=== PATIENT | male | born 1960 | race Caucasian/White ===

== ENCOUNTER 2016-07-11 10:30 | Emergency (ER) | payer MEDICARE, MEDICAID ==
[2016-07-11] MEDS ORDERED: Albuterol/Ipratropium 3.0-0.5 MG/3 ML Neb Soln NEB ONE (12:32)
[2016-07-11] MEDS ORDERED: Albuterol/Ipratropium 3.0-0.5 MG/3 ML Neb Soln ONE (12:32)
[2016-07-11 12:44] VITALS: BP 111/83
--- NOTE | 2016-07-11 13:05 | EDM.PDOC ---
ED HISTORY OF PRESENT ILLNESS - General Stated Complaint: SHORT OF BREATH, ABD PAIN, COUGH SYMPTOMS Time Seen by Provider: 07/11/16 10:55 Source of Information: Reports: Patient, Family (mom) History Limitations: Reports: No limitations - History of Present Illness INITIAL COMMENTS - FREE TEXT/NARRATIVE: Patient presents with dyspnea. He has had some coughing. He uses an oxygen concentrator at home for nights at 2 liters. He brings the concentrator with him when he visits his mother and used it last night but his mother noticed it wasn't plugged in this morning and thinks may have something to do with his dyspnea and low sats today. He has known COPD and was hospitalized here in [place] for a week; discharged 5 days ago. He lives in [place] but comes to stay with his mother in [place] frequently. He has been with her since the recent hospitalization and until today didn't realize he hasn't been taking his Clozapine for his schizophrenia. They don't know where it got lost. His mom wonders if he may not have had it while inpatient either. - Related Data Allergies/ADRs: Allergies Allergy/AdvReac Type Severity Reaction Status Date / Time No Known Drug Allergies Allergy Other Verified 07/11/16 12:47 Home Meds: Home Meds Benztropine [Cogentin] 1 mg PO BEDTIME 10/20/13 [History] Citalopram [Citalopram HBr] 20 mg PO BEDTIME 10/20/13 [History] cloZAPine 600 mg PO BEDTIME 10/20/13 [History] ClonazePAM [KlonoPIN] 0.5 mg PO 0800 10/27/15 [History] ClonazePAM [KlonoPIN] 1.5 mg PO BEDTIME 10/27/15 [History] Albuterol Sulfate [Proair Hfa] 2 puff INH Q4H PRN 10/30/15 [History] ClonazePAM [KlonoPIN] 0.5 mg PO 1200 12/28/15 [History] Fluticasone/Salmeterol [Advair Hfa 230-21 Mcg Inhaler] 2 puff INH BID 12/28/15 [ History] Aspirin [Halfprin] 81 mg PO BRK 06/27/16 [History] Carvedilol 6.25 mg PO BID@0800,2000 06/27/16 [History] Digoxin 125 mcg PO DAILY 06/27/16 [History] Lisinopril 10 mg PO DAILY 06/27/16 [History] Tiotropium [Spiriva Handihaler] 18 mcg INH DAILY 07/02/16 [History] Past Medical History HEENT History: Reports: Impaired vision Cardiovascular History: Reports: Hypertension Respiratory History: Reports: Bronchitis, recurrent, COPD, Pneumonia, recurrent , Other (see below) Other Respiratory History: emphysema, mass on LLL of lung found on PET scan on . Also had cyst removed from right lung and biopsied at this time, found to be benign. Psychiatric History: Reports: Anxiety, Bipolar, Other (see below) Other Psychiatric History: schizoaffective disorder vs bipolar/high-anxiety disorder, currently treated for these conditions - Infectious Disease History Infectious Disease History: Reports: Other (see below) Other Infectious Disease History: Was taking infectious disease medication, one being rifampin, for the entire year of 2014 as prescribed by his infectious disease doctor in [place] to eliminate "spots" on his lungs over a period of time. - Past Surgical History Other HEENT Surgeries/Procedures: wears glasses Respiratory Surgical History: Reports: Lung Biopsies Social & Family History - Family History HEENT: Reports: None Cardiac: Reports: None, Aneurysm Respiratory: Reports: None GI: Reports: None : Reports: None OBGYN: Reports: None Musculoskeletal: Reports: None Neurological: Reports: None Psychiatric: Reports: None Endocrine/Metabolic: Reports: Hypothyroidism Hematologic: Reports: None Immunologic: Reports: None Dermatologic: Reports: None Oncologic: Reports: None - Tobacco Use Smoking Status *Q: Current Every Day Smoker Years of Tobacco use: 35 Packs/Tins Daily: 1.5 Used Tobacco, but Quit: No Month Tobacco Last Used: October Second Hand Smoke Exposure: No - Caffeine Use Caffeine Use: Reports: Coffee Caffeine Use Comment: Patient states that he drinks two pots of coffee every day at home. - Alcohol Use Days Per Week of Alcohol Use: 0 - Recreational Drug Use Recreational Drug Use: No Drug Use in Last 12 Months: No Recreational Drug Type: Reports: Marijuana/Hashish Recreational Drug Last Use: 1990 - Living Situation & Occupation Living situation: Reports: single, alone Occupation: employed (head of business development) ED ROS GENERAL - Review of Systems Review Of Systems: See Below Constitutional: Denies: fever (not at home but was seen here), diaphoresis HEENT: Denies: Throat pain, Throat swelling Respiratory: Reports: shortness of breath, cough Cardiovascular: Denies: Chest pain, Syncope GI/Abdominal: Denies: Abdominal pain, Diarrhea, Vomiting : Reports: no symptoms Musculoskeletal: Reports: no symptoms Skin: Denies: cyanosis, jaundice, mottled, pallor, diaphoresis Neurological: Denies: dizziness, headache, seizure, syncope, trouble speaking, difficulty walking, weakness Psychiatric: Reports: Agitation (a little more than usual likely due to being off the clozapine for a few days), Anxiety ED EXAM, GENERAL - Physical Exam Exam: See Below Exam Limited By: No limitations General Appearance: alert, WD/WN, no apparent distress Eye Exam: bilateral eye: EOMI, normal inspection, PERRL Ears: normal external exam, hearing grossly normal Nose: normal inspection Throat/Mouth: Normal inspection, Normal lips, Normal voice, No airway compromise Head: atraumatic, normocephalic Neck: normal inspection, full range of motion Respiratory/Chest: no accessory muscle use, crackles (minimal to slight but cleared some with several deep breaths), wheezing (mildly in bases). No: rhonchi, stridor Cardiovascular: normal peripheral pulses, regular rate, rhythm, no murmur GI/Abdominal: normal bowel sounds, soft, non tender, no organomegaly Back Exam: No: CVA tenderness (L), CVA tenderness (R) Extremities: normal inspection, normal range of motion, non-tender, no pedal edema Neurological: alert, oriented, no motor/sensory deficits Psychiatric: anxious Skin Exam: Warm, Dry, Intact, Normal color, No rash Course - Orders/Labs/Meds Orders: Active Orders 24 hr Category Date Time Status Chest 2V [CR] Stat Exams 07/11/16 12:28 Ordered BMP [BASIC METABOLIC PANEL,BMP] [CHEM] Stat Lab 07/11/16 12:28 Ordered CBC WITH AUTO DIFF [HEME] Stat Lab 07/11/16 12:28 Ordered - Re-Assessments/Exams Free Text/Narrative Re-Assessment/Exam: 07/11/16 13:38 WBC 23.5, CXR looks unchanged from two weeks ago and no evidence of infiltrates. Report shows lungs are clear and stable 13 mm right upper lobe nodule. Discussed with Dr. Person who knows this patient well and just discharged him from [facility] 5 days ago after he was able to be off oxygen. She thinks the leukocytosis is due to the steroid burst she discharged him on. She recommends we try Dexamethasone 8mg now and if his sats remain 88% or higher on RA he is okay to go home and follow up with his PCP in [place] in the next day or two. 07/11/16 14:17 Removed oxygen several minutes prior to administration of Dexamethasone; 11 minutes later patient remained stable at 90% sats on RA with walking. RR 22. Discharged in stable condition. Departure - Departure Time of Disposition: 14:16 Disposition: Home, Self-Care 01 Condition: good Clinical Impression: COPD (chronic obstructive pulmonary disease) Qualifiers: COPD type: unspecified COPD Qualified Code(s): J44.9 - Chronic obstructive pulmonary disease, unspecified Dyspnea Qualifiers: Dyspnea type: shortness of breath Qualified Code(s): R06.02 - Shortness of breath Additional Instructions: 1. Take your medications as directed. 2. Use the oxygen at night and as needed during the day. 3. Get back to see your PCP tomorrow to recheck the lungs and get back on your Clozapine. - My Orders Last 24 Hours: My Active Orders 07/11/16 12:28 Chest 2V [CR] Stat BMP [BASIC METABOLIC PANEL,BMP] [CHEM] Stat CBC WITH AUTO DIFF [HEME] Stat - Assessment/Plan Last 24 Hours: My Active Orders 07/11/16 12:28 Chest 2V [CR] Stat BMP [BASIC METABOLIC PANEL,BMP] [CHEM] Stat CBC WITH AUTO DIFF [HEME] Stat
[2016-07-11 13:07] LABS: CHLORIDE,CL 101 mmol/L (98-115); SODIUM,NA 138 mmol/L (136-145)
[2016-07-11] MEDS ORDERED: Dexamethasone 10 MG/ML SDV IVPUSH ONE (13:36)
== END 2016-07-11 14:30 | disposition home or self-care (01) ==
LOC: KA.ED 10:30
DX: J44.9 Chronic obstructive pulmonary disease, unspecified (principal); I10 Essential (primary) hypertension; F17.210 Nicotine dependence, cigarettes, uncomplicated; Z79.899 Other long term (current) drug therapy
CPT/HCPCS: 36415; 71020; 80048; 85025; 94640; 96374; 99285; J1100; 99284

== ENCOUNTER 2016-07-12 11:49 | Emergency (ER) | payer MEDICARE, MEDICAID ==
[2016-07-12 11:54] VITALS: BP 111/60
[2016-07-12] MEDS ORDERED: Albuterol/Ipratropium 3.0-0.5 MG/3 ML Neb Soln ONE (12:08)
[2016-07-12] MEDS ORDERED: Albuterol 0.083% 2.5 MG/3 ML Neb Soln ONE (12:08)
--- NOTE | 2016-07-12 13:01 | EDM.PDOC ---
ED HISTORY OF PRESENT ILLNESS - General Chief Complaint: Respiratory Problem Time Seen by Provider: 07/12/16 12:31 Source of Information: Reports: Patient History Limitations: Reports: No limitations - History of Present Illness INITIAL COMMENTS - FREE TEXT/NARRATIVE: Patient presents with report of shortness of breath. He says he walks 10 yards and gets tired and winded. He was in ER here yesterday and had a CXR and albuterol nebs. He was stable with sats at 90% on RA with walking at discharge. Six days ago he was inpatient here for COPD with acute exacerbation and pneumonia for a week. He also has schizophrenia and has been out of his Clozapine for 6 days but they called his pharmacy in [place] and it will be delivered to him at his mother's house tomorrow. He is trying to get back to [place] to follow up with his animal husbandry professor and his mental health provider but today they thought he was just too short of breath to drive up there. He says he did do an albuterol neb at home today and has just one left now. He has more of his inhaler and Advair and is using them. He is coughing up a fair amount of phlegm from his lungs yet. - Related Data Allergies/ADRs: Allergies Allergy/AdvReac Type Severity Reaction Status Date / Time No Known Drug Allergies Allergy Other Verified 07/12/16 11:55 Home Meds: Home Meds Benztropine [Cogentin] 1 mg PO BEDTIME 10/20/13 [History] Citalopram [Citalopram HBr] 20 mg PO BEDTIME 10/20/13 [History] cloZAPine 600 mg PO BEDTIME 10/20/13 [History] ClonazePAM [KlonoPIN] 0.5 mg PO 0800 10/27/15 [History] ClonazePAM [KlonoPIN] 1.5 mg PO BEDTIME 10/27/15 [History] Albuterol Sulfate [Proair Hfa] 2 puff INH Q4H PRN 10/30/15 [History] ClonazePAM [KlonoPIN] 0.5 mg PO 1200 12/28/15 [History] Fluticasone/Salmeterol [Advair Hfa 230-21 Mcg Inhaler] 2 puff INH BID 12/28/15 [ History] Aspirin [Halfprin] 81 mg PO BRK 06/27/16 [History] Carvedilol 6.25 mg PO BID@0800,199906/27/16 [History] Digoxin 125 mcg PO DAILY 06/27/16 [History] Lisinopril 10 mg PO DAILY 06/27/16 [History] Tiotropium [Spiriva Handihaler] 18 mcg INH DAILY 07/02/16 [History] Past Medical History HEENT History: Reports: Impaired vision Cardiovascular History: Reports: Hypertension Respiratory History: Reports: Bronchitis, recurrent, COPD, Pneumonia, recurrent , Other (see below) Other Respiratory History: emphysema, mass on LLL of lung found on PET scan on . Also had cyst removed from right lung and biopsied at this time, found to be benign. Psychiatric History: Reports: Anxiety, Bipolar, Other (see below) Other Psychiatric History: schizoaffective disorder vs bipolar/high-anxiety disorder, currently treated for these conditions - Infectious Disease History Infectious Disease History: Reports: Chicken pox Other Infectious Disease History: Was taking infectious disease medication, one being rifampin, for the entire year of 2014 as prescribed by his infectious disease doctor in [place] to eliminate "spots" on his lungs over a period of time. - Past Surgical History Head Surgeries/Procedures: Reports: None Other HEENT Surgeries/Procedures: wears glasses Respiratory Surgical History: Reports: Lung Biopsies Social & Family History - Family History Family Medical History: Noncontributory HEENT: Reports: None Cardiac: Reports: None, Aneurysm Respiratory: Reports: None GI: Reports: None : Reports: None OBGYN: Reports: None Musculoskeletal: Reports: None Neurological: Reports: None Psychiatric: Reports: None Endocrine/Metabolic: Reports: Hypothyroidism Hematologic: Reports: None Immunologic: Reports: None Dermatologic: Reports: None Oncologic: Reports: None - Tobacco Use Smoking Status *Q: Current Every Day Smoker Years of Tobacco use: 35 Packs/Tins Daily: 0.5 Used Tobacco, but Quit: No Month Tobacco Last Used: October Second Hand Smoke Exposure: No - Caffeine Use Caffeine Use: Reports: Coffee Caffeine Use Comment: Patient states that he drinks two pots of coffee every day at home. - Alcohol Use Days Per Week of Alcohol Use: 0 - Recreational Drug Use Recreational Drug Use: No Drug Use in Last 12 Months: No Recreational Drug Type: Reports: Marijuana/Hashish Recreational Drug Last Use: 1990 - Living Situation & Occupation Living situation: Reports: single, alone Occupation: employed (securities broker) ED ROS GENERAL - Review of Systems Review Of Systems: See Below Constitutional: Denies: fever, chills, diaphoresis HEENT: Denies: Ear pain, Eye discharge, Throat pain, Throat swelling Respiratory: Reports: shortness of breath, cough, sputum. Denies: wheezing, hemoptysis Cardiovascular: Denies: Chest pain, Lightheadedness, Syncope GI/Abdominal: Denies: Abdominal pain, Vomiting : Reports: no symptoms Musculoskeletal: Reports: no symptoms Skin: Denies: cyanosis, jaundice, mottled, pallor, diaphoresis Neurological: Denies: confusion, dizziness, headache Psychiatric: Reports: Anxiety (always a little anxious), Other (patient is pleasant and cooperative without any sign of wanting to harm self or others.). Denies: Agitation, Confusion ED EXAM, GENERAL - Physical Exam Exam: See Below Exam Limited By: No limitations General Appearance: alert, WD/WN, no apparent distress Eye Exam: bilateral eye: EOMI, normal inspection, PERRL Ears: normal external exam, hearing grossly normal Nose: normal inspection, no blood Throat/Mouth: Normal lips, Normal voice, No airway compromise Head: atraumatic, normocephalic Neck: normal inspection, full range of motion Respiratory/Chest: no respiratory distress, lungs clear, normal breath sounds, no accessory muscle use, other (with first couple deep breaths I heard a few crackles on right lower lung but this completely cleared after taking more deep breaths for auscultation. Air movement is very good throughout.). No: decreased breath sounds, crackles, rales, rhonchi, wheezing, stridor Cardiovascular: regular rate, rhythm, no murmur Extremities: normal inspection, normal range of motion Neurological: alert, oriented, normal cognition (seemed very normal today), no motor/sensory deficits Psychiatric: normal affect, normal mood Skin Exam: Warm, Dry, Intact, Normal color, No rash Course - Vital Signs Last Recorded V/S: Last Vital Signs Temp 97.9 F 07/12/16 11:52 Pulse 90 07/12/16 11:52 Resp 16 07/12/16 11:52 BP 111/60 07/12/16 11:52 Pulse Ox 88 L 07/12/16 11:52 - Orders/Labs/Meds Meds: Medications Discontinued Medications Generic Name Dose Route Start Last Admin Trade Name Alton PRLam Reason Stop Dose Admin Albuterol Confirm 07/12/16 12:08 07/12/16 12:36 Proventil Neb Soln Administered 07/12/16 12:09 Not Given Dose 2.5 mg .ROUTE .STK-MED ONE Albuterol/Ipratropium Confirm 07/12/16 12:08 07/12/16 12:36 Duoneb 3.0-0.5 Mg/3 Ml Administered 07/12/16 12:09 Not Given Dose 3 ml .ROUTE .STK-MED ONE - Re-Assessments/Exams Free Text/Narrative Re-Assessment/Exam: 07/12/16 13:42 Discussed findings, expectations and treatment plan. Following nebs and auscultation sats are 92% on RA and patient is breathing very easily. 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 Patient discharged in stable condition with plan to get his mail prescriptions tomorrow and then return to [place] to follow up with his regular doctors. Departure - Departure Time of Disposition: 13:05 Disposition: Home, Self-Care 01 Condition: good Clinical Impression: Dyspnea Qualifiers: Dyspnea type: shortness of breath Qualified Code(s): R06.02 - Shortness of breath COPD (chronic obstructive pulmonary disease) Qualifiers: COPD type: unspecified COPD Qualified Code(s): J44.9 - Chronic obstructive pulmonary disease, unspecified Forms: ED Department Discharge Additional Instructions: 1. Use the albuterol nebulizer as needed for shortness of breath. 2. Call your animal husbandry professor to make an appointment as soon as possible to evaluate your lung function thoroughly. 3. If you can't get your breathing improved adequately with inhalers and nebulizers go to clinic or ER.
[2016-07-20] MEDS ORDERED: Albuterol/Ipratropium 3.0-0.5 MG/3 ML Neb Soln NEB ONE (09:54)
[2016-07-20] MEDS ORDERED: Albuterol 0.083% 2.5 MG/3 ML Neb Soln NEB ONE (09:55)
== END 2016-07-12 13:15 | disposition home or self-care (01) ==
LOC: KA.ED 11:49
DX: J44.9 Chronic obstructive pulmonary disease, unspecified (principal); I10 Essential (primary) hypertension; F41.9 Anxiety disorder, unspecified; Z79.899 Other long term (current) drug therapy
CPT/HCPCS: 99284; J7620-GY

== ENCOUNTER 2017-03-06 17:40 | Inpatient (IN) | payer MEDICARE, MEDICAID ==
[2017-03-06] MEDS ORDERED: Sodium Chloride 0.9% 1,000 ML IV ONE (18:14)
[2017-03-06] MEDS ORDERED: Acetaminophen 500 MG Tab PO ONE (18:14)
[2017-03-06] MEDS ORDERED: Sodium Chloride 0.9% 5 ML Syringe FLUSH PRN ×2 (18:14→19:03)
[2017-03-06] MEDS ORDERED: Albuterol/Ipratropium 3.0-0.5 MG/3 ML Neb Soln NEB ONE (18:23)
[2017-03-06] MEDS ORDERED: methylPREDNISolone Sodium Succinate 125 MG/2 ML SDV IVPUSH ONE (18:23)
[2017-03-06] MEDS ORDERED: methylPREDNISolone Sodium Succinate 125 MG/2 ML SDV ONE (18:24)
[2017-03-06] MEDS ORDERED: Albuterol/Ipratropium 3.0-0.5 MG/3 ML Neb Soln ONE (18:24)
--- NOTE | 2017-03-06 18:34 | EDM.PDOC ---
ED HPI GENERAL MEDICAL PROBLEM - General Chief Complaint: Respiratory Problem Stated Complaint: FEVER, SHORTNESS OF BREATH Time Seen by Provider: 03/06/17 18:10 Source of Information: Reports: Patient History Limitations: Reports: No Limitations - History of Present Illness INITIAL COMMENTS - FREE TEXT/NARRATIVE: 56 YO WM with history of COPD and tobacco use/abuse who presents to ER with fever, shortness of breath and productive cough. Pt reports he started feeling bad yesterday. Pt was out of town at the time and family didn't realize he had a fever. Mom states he was shivering and felling cold while bundling up with extra clothes. Pt denies any chest pain or vomiting. Pt states he has been using his rescue inhaler with minimal relief. Onset Date: 03/05/17 Duration: Day(s): (1) Location: Reports: Generalized Quality: Reports: Ache Severity: Mild Improves with: Reports: None Worsens with: Reports: Breathing Associated Symptoms: Reports: Cough, cough w sputum, Fever/Chills, Malaise, Shortness of Breath, Weakness - Related Data Allergies Allergy/AdvReac Type Severity Reaction Status Date / Time No Known Drug Allergies Allergy Other Verified 03/06/17 17:46 Home Meds: Home Meds Benztropine [Cogentin] 1 mg PO BEDTIME 10/20/13 [History] Citalopram [Citalopram HBr] 20 mg PO BEDTIME 10/20/13 [History] cloZAPine 600 mg PO BEDTIME 10/20/13 [History] ClonazePAM [KlonoPIN] 0.5 mg PO 0800 10/27/15 [History] ClonazePAM [KlonoPIN] 1.5 mg PO BEDTIME 10/27/15 [History] Albuterol Sulfate [Proair Hfa] 2 puff INH Q4H PRN 10/30/15 [History] ClonazePAM [KlonoPIN] 0.5 mg PO 1200 12/28/15 [History] Fluticasone/Salmeterol [Advair Hfa 230-21 Mcg Inhaler] 2 puff INH BID 12/28/15 [ History] Aspirin [Halfprin] 81 mg PO BRK 06/27/16 [History] Carvedilol 6.25 mg PO BID@0800,2000 06/27/16 [History] Digoxin 125 mcg PO DAILY 06/27/16 [History] Tiotropium [Spiriva Handihaler] 18 mcg INH DAILY 07/02/16 [History] Cetirizine [ZyrTEC] 10 mg PO DAILY 03/06/17 [History] Famotidine [Pepcid] 20 mg PO BID 03/06/17 [History] Sennosides [Senokot] 8.6 mg PO DAILY PRN 03/06/17 [History] Past Medical History HEENT History: Reports: Impaired Vision Cardiovascular History: Reports: Hypertension Respiratory History: Reports: Bronchitis, Recurrent, COPD, Pneumonia, Recurrent , Other (See Below) Other Respiratory History: emphysema, mass on LLL of lung found on PET scan on . Also had cyst removed from right lung and biopsied at this time, found to be benign. Psychiatric History: Reports: Anxiety, Bipolar, Other (See Below) Other Psychiatric History: schizoaffective disorder vs bipolar/high-anxiety disorder, currently treated for these conditions - Infectious Disease History Infectious Disease History: Reports: Chicken Pox Other Infectious Disease History: Was taking infectious disease medication, one being rifampin, for the entire year of 2014 as prescribed by his infectious disease doctor in [place] to eliminate "spots" on his lungs over a period of time. - Past Surgical History Head Surgeries/Procedures: Reports: None Other HEENT Surgeries/Procedures: wears glasses Respiratory Surgical History: Reports: Lung Biopsies Social & Family History - Family History Family Medical History: Noncontributory HEENT: Reports: None Cardiac: Reports: None, Aneurysm Respiratory: Reports: None GI: Reports: None : Reports: None OBGYN: Reports: None Musculoskeletal: Reports: None Neurological: Reports: None Psychiatric: Reports: None Endocrine/Metabolic: Reports: Hypothyroidism Hematologic: Reports: None Immunologic: Reports: None Dermatologic: Reports: None Oncologic: Reports: None - Tobacco Use Smoking Status *Q: Current Every Day Smoker Years of Tobacco use: 35 Packs/Tins Daily: 0.5 Used Tobacco, but Quit: No Month Tobacco Last Used: October Second Hand Smoke Exposure: No - Caffeine Use Caffeine Use: Reports: Coffee Caffeine Use Comment: Patient states that he drinks two pots of coffee every day at home. - Alcohol Use Days Per Week of Alcohol Use: 0 - Recreational Drug Use Recreational Drug Use: No Drug Use in Last 12 Months: No Recreational Drug Type: Reports: Marijuana/Hashish Recreational Drug Last Use: 1990 - Living Situation & Occupation Living situation: Reports: Single, Alone Occupation: Employed ED ROS GENERAL - Review of Systems Review Of Systems: See Below Constitutional: Reports: Fever, Chills, Malaise, Fatigue HEENT: Reports: No Symptoms Respiratory: Reports: Shortness of Breath, Wheezing, Cough, Sputum Cardiovascular: Reports: No Symptoms Endocrine: Reports: No Symptoms GI/Abdominal: Reports: No Symptoms : Reports: No Symptoms Musculoskeletal: Reports: No Symptoms Skin: Reports: No Symptoms Neurological: Reports: No Symptoms Psychiatric: Reports: No Symptoms Hematologic/Lymphatic: Reports: No Symptoms Immunologic: Reports: No Symptoms ED EXAM, GENERAL - Physical Exam Exam: See Below Exam Limited By: No Limitations General Appearance: Alert, WD/WN, No Apparent Distress Throat/Mouth: Normal Inspection, Normal Lips, Normal Teeth, Normal Gums, Normal Oropharynx, Normal Voice, No Airway Compromise Head: Atraumatic, Normocephalic Neck: Normal Inspection, Supple, Non-Tender, Full Range of Motion Respiratory/Chest: No Respiratory Distress, No Accessory Muscle Use, Chest Non- Tender, Rhonchi, Wheezing Cardiovascular: Normal Peripheral Pulses, Regular Rate, Rhythm, No Edema, No Gallop, No JVD, No Murmur, No Rub, Tachycardia GI/Abdominal: Normal Bowel Sounds, Soft, Non-Tender, No Organomegaly, No Distention, No Abnormal Bruit, No Mass Back Exam: Normal Inspection, Full Range of Motion, NT Extremities: Normal Inspection, Normal Range of Motion, Non-Tender, Normal Capillary Refill, No Pedal Edema Neurological: Alert, Oriented, CN II-XII Intact, Normal Cognition, Normal Gait, Normal Reflexes, No Motor/Sensory Deficits Psychiatric: Normal Affect, Normal Mood Skin Exam: Warm, Dry, Intact, Normal Color, No Rash Lymphatic: No Adenopathy EKG INTERPRETATION EKG Date: 03/06/17 Time: 18:28 Rhythm: NSR Rate (Beats/Min): 121 [place]: Normal P-Wave: Present QRS: RBBB ST-T: Normal QT: Normal Comparison: NA - No Prior EKG Course - Vital Signs Last Recorded V/S: Last Vital Signs Temp 37.9 C 03/06/17 18:25 Pulse 143 H 03/06/17 17:42 Resp 30 H 03/06/17 17:42 BP 111/69 03/06/17 17:42 Pulse Ox 85 L 03/06/17 17:42 - Orders/Labs/Meds Orders: Active Orders 24 hr Category Date Time Status EKG Documentation Completion [RC] ASDIRECTED Care 03/06/17 18:19 Ordered Peripheral IV Care [RC] . DIRECTED Care 03/06/17 18:19 Ordered RT Aerosol Therapy [RC] ASDIRECTED Care 03/06/17 18:23 Ordered CXR [Chest 2V] [CR] Stat Exams 03/06/17 18:11 Ordered CULTURE BLOOD [BC] Stat Lab 03/06/17 18:19 Ordered CULTURE BLOOD [BC] Stat Lab 03/06/17 18:19 Ordered LACTIC ACID [CHEM] Stat Lab 03/06/17 18:14 Ordered UA W/MICROSCOPIC [URIN] Stat Lab 03/06/17 18:14 Uncollected Sodium Chloride 0.9% @ 999 MLS/HR (1000ml) Med 03/06/17 18:14 Ordered Sodium Chloride 0.9% [Normal Saline] 1,000 ml IV .BOLUS Sodium Chloride 0.9% [Syrex Flush] Med 03/06/17 18:14 Ordered 5 ml FLUSH Q8HR PRN Blood Culture x2 Reflex Set [OM.PC] Stat Oth 03/06/17 18:14 Ordered Peripheral IV Insertion Adult [OM.PC] Routine Oth 03/06/17 18:14 Ordered EKG 12 Lead [EK] Routine Ther 03/06/17 18:14 Ordered Medication Orders Sodium Chloride (Normal Saline) 1,000 mls @ 999 mls/hr IV .BOLUS ONE Stop: 03/06/17 19:14 Last Admin: 03/06/17 18:26 Dose: 999 mls/hr Sodium Chloride (Syrex Flush) 5 ml FLUSH Q8HR PRN PRN Reason: Keep Vein Open Labs: Laboratory Tests 03/06/17 03/06/17 Range/Units 17:55 17:55 WBC 22.7 H (5.0-10.0) 10^3/uL RBC 5.00 (4.50-6.00) 10^6/uL Hgb 14.5 (13.0-17.0) g/dL Hct 44.3 (40.0-52.0) % MCV 88.6 (82.0-92.0) fL MCH 29.0 (27.0-31.0) pg MCHC 32.7 (32.0-36.0) g/dL RDW 16.0 H (11.5-14.5) % Plt Count 237 (150-300) 10^3/uL MPV 8.4 (7.4-10.4) fL Neut % (Auto) 91.3 H (50.0-70.0) % Lymph % (Auto) 3.7 L (20.0-40.0) % [place] % (Auto) 4.7 (2.0-8.0) % Eos % (Auto) 0.0 L (1.0-3.0) % Baso % (Auto) 0.3 (0.0-1.0) % Neut # (Auto) 20.7 H (2.5-7.0) 10^3/uL Lymph # (Auto) 0.8 L (1.0-4.0) 10^3/uL [place] # (Auto) 1.1 H (0.1-0.8) 10^3/uL Eos # (Auto) 0.0 L (0.1-0.3) 10^3/uL Baso # (Auto) 0.1 (0.0-0.1) 10^3/uL Sodium 142 (136-145) mmol/L Potassium 3.7 (3.3-5.3) mmol/L Chloride 105 (98-115) mmol/L Carbon Dioxide 23.8 (21.0-32.0) mmol/L BUN 19 (6-25) mg/dL Creatinine 0.83 (0.51-1.17) mg/dL Est Cr Clr Drug Dosing 103.32 mL/min Estimated GFR (MDRD) > 60 mL/min Glucose 145 H (70-110) mg/dL Calcium 8.7 (8.7-10.3) mg/dL Total Bilirubin 0.7 (0.2-1.0) mg/dL AST 17 (15-37) U/L ALT 36 (12-78) U/L Alkaline Phosphatase 69 (46-116) IU/L Total Protein 6.3 L (6.4-8.2) g/dL Albumin 3.19 (3.00-4.80) g/dL Meds: Medications Generic Name Dose Route Start Last Admin Trade Name Alton PRN Reason Stop Dose Admin Sodium Chloride 1,000 mls @ 999 mls/hr 03/06/17 18:14 03/06/17 18:26 Normal Saline IV 03/06/17 19:14 999 mls/hr .BOLUS ONE Administration Sodium Chloride 5 ml 03/06/17 18:14 Syrex Flush FLUSH Q8HR PRN Keep Vein Open Discontinued Medications Generic Name Dose Route Start Last Admin Trade Name Alton PRN Reason Stop Dose Admin Acetaminophen 1,000 mg 03/06/17 18:14 03/06/17 18:25 Tylenol Extra Strength PO 03/06/17 18:15 1,000 mg ONETIME ONE Administration Albuterol/Ipratropium 3 ml 03/06/17 18:23 03/06/17 18:25 Duoneb 3.0-0.5 Mg/3 Ml NEB 03/06/17 18:24 3 ml ONETIME ONE Administration Albuterol/Ipratropium Confirm 03/06/17 18:24 03/06/17 18:34 Duoneb 3.0-0.5 Mg/3 Ml Administered 03/06/17 18:25 Not Given Dose 3 ml .ROUTE .STK-MED ONE Methylprednisolone Sodium Succinate 125 mg 03/06/17 18:23 03/06/17 18:29 Solu-Medrol IVPUSH 03/06/17 18:24 125 mg ONETIME ONE Administration Methylprednisolone Sodium Succinate Confirm 03/06/17 18:24 03/06/17 18:34 Solu-Medrol Administered 03/06/17 18:25 Not Given Dose 125 mg .ROUTE .STK-MED ONE - Radiology Interpretation Free Text/Narrative:: CXR- RLL pneumonia Departure - Departure Time of Disposition: 19:12 Disposition: Admitted As Inpatient 64 Condition: Poor Clinical Impression: Pneumonia Qualifiers: Pneumonia type: due to unspecified organism Laterality: right Lung location: lower lobe of lung Qualified Code(s): J18.1 - Lobar pneumonia, unspecified organism - Discharge Information Referrals: PCP,Not In Area [Primary Care Provider] - Forms: ED Department Discharge - My Orders Last 24 Hours: My Active Orders 03/06/17 18:11 CXR [Chest 2V] [CR] Stat 03/06/17 18:14 LACTIC ACID [CHEM] Stat UA W/MICROSCOPIC [URIN] Stat Sodium Chloride 0.9% @ 999 MLS/HR (1000ml) Sodium Chloride 0.9% [Normal Saline] 1,000 ml IV .BOLUS Sodium Chloride 0.9% [Syrex Flush] 5 ml FLUSH Q8HR PRN Blood Culture x2 Reflex Set [OM.PC] Stat Peripheral IV Insertion Adult [OM.PC] Routine EKG 12 Lead [EK] Routine 03/06/17 18:19 EKG Documentation Completion [RC] ASDIRECTED Peripheral IV Care [RC] . DIRECTED CULTURE BLOOD [BC] Stat CULTURE BLOOD [BC] Stat 03/06/17 18:23 RT Aerosol Therapy [RC] ASDIRECTED - Assessment/Plan Last 24 Hours: My Active Orders 03/06/17 18:11 CXR [Chest 2V] [CR] Stat 03/06/17 18:14 LACTIC ACID [CHEM] Stat UA W/MICROSCOPIC [URIN] Stat Sodium Chloride 0.9% @ 999 MLS/HR (1000ml) Sodium Chloride 0.9% [Normal Saline] 1,000 ml IV .BOLUS Sodium Chloride 0.9% [Syrex Flush] 5 ml FLUSH Q8HR PRN Blood Culture x2 Reflex Set [OM.PC] Stat Peripheral IV Insertion Adult [OM.PC] Routine EKG 12 Lead [EK] Routine 03/06/17 18:19 EKG Documentation Completion [RC] ASDIRECTED Peripheral IV Care [RC] . DIRECTED CULTURE BLOOD [BC] Stat CULTURE BLOOD [BC] Stat 03/06/17 18:23 RT Aerosol Therapy [RC] ASDIRECTED Assessment:: 1. pneumonia 2. hypoxia 3. COPD history 4. tobacco use/abuse Plan: 1. admit to Dr Benavides for pneumonia and hypoxia 2. duoneb Q4 and PRN 3. levaquin for antibiotics 4. solumedrol 80mg IV Q8 5. supportive care- O2
[2017-03-06 18:40] LABS: CHLORIDE,CL 105 mmol/L (98-115); SODIUM,NA 142 mmol/L (136-145)
[2017-03-06] MEDS ORDERED: Levofloxacin/Dextrose 5%-Water 500 MG in Premix Bag 1 BAG IV ONE (18:57)
[2017-03-06] MEDS ORDERED: Levofloxacin/Dextrose 5%-Water 500 MG in Premix Bag 1 BAG IV SCH (19:15)
[2017-03-06] MEDS ORDERED: methylPREDNISolone Sodium Succinate 125 MG/2 ML SDV IVPUSH SCH (19:15)
[2017-03-06] MEDS: Sodium Chloride 0.9% 1,000 ML IV SCH (19:41)
[2017-03-06] MEDS ORDERED: SENNOSIDES 8.6 MG PO PRN (19:48)
[2017-03-06] MEDS ORDERED: Nicotine Polacrilex 4 MG Gum CHEW PRN (19:50)
[2017-03-06] MEDS ORDERED: Nicotine 14 MG/24 Hr Patch TRDERM SCH (20:00)
[2017-03-06] MEDS: Benztropine 1 MG Tab PO SCH (20:16)
[2017-03-06] MEDS: Famotidine 20 MG Tab PO SCH (20:16)
[2017-03-06] MEDS: Citalopram 20 MG Tab PO SCH (20:16)
[2017-03-06] MEDS: Carvedilol 6.25 MG Tab PO SCH (20:16)
[2017-03-06] MEDS: ClonazePAM 0.5 MG Tab PO SCH (20:53)
[2017-03-06] MEDS ORDERED: CLONAZEPAM 1.5 MG PO SCH (21:00)
[2017-03-06] MEDS ORDERED: CLOZAPINE PO SCH (21:00)
[2017-03-06] MEDS ORDERED: EPINEPHrine 1:10,000 1 MG/10 ML Syringe IVPUSH PRN (22:45)
[2017-03-06] MEDS ORDERED: Lidocaine 2% 100 MG/5 ML Syringe IVPUSH PRN (22:45)
[2017-03-06] MEDS ORDERED: Atropine 0.1 MG/ML 10 ML Syringe IVPUSH PRN (22:45)
[2017-03-06] MEDS ORDERED: Nitroglycerin 0.4 MG Tab.SL SL PRN (22:45)
[2017-03-07] MEDS: methylPREDNISolone Sodium Succinate 125 MG/2 ML SDV IVPUSH SCH ×3 (01:28→17:41)
[2017-03-07] MEDS: Sodium Chloride 0.9% 1,000 ML IV SCH (04:45)
[2017-03-07] MEDS: Albuterol/Ipratropium 3.0-0.5 MG/3 ML Neb Soln NEB PRN ×2 (07:52→12:28)
[2017-03-07] MEDS ORDERED: Non-Formulary Medication 1 Each (Clonazepam [Klonopin] 0.5 MG) PO SCH ×2 (08:00→12:00)
[2017-03-07 08:04] LABS: CHLORIDE,CL 112 mmol/L (98-115); SODIUM,NA 146 mmol/L (136-145)
[2017-03-07] MEDS ORDERED: Dextrose 5%-0.45% NaCl 1,000 ML IV SCH (09:00)
[2017-03-07] MEDS: Nicotine 21 MG/24 Hr Patch TRDERM SCH (09:06)
--- NOTE | 2017-03-07 09:06 | PCM.PN ---
- General Info Date of Service: 03/07/17 Admission Dx/Problem (Free Text): RLL Pneumonia Subjective Update: Ghulam is seen today on inpatient rounds. He was admitted on 03/06/17 with RLL pneumonia with leukocytosis and hypoxia. He states that this morning he is feeling a lot better. He states he started to get sick on 03/05/17 and he was "really sick" on 03/06/17 prompting ER evaluation. He was on his way back from [place] with his family, heading to [place], where is mother lives and then was going to go back to [place], where he lives to go back to work on . He states "I could hardly get from the car into the rest area I felt so weak". He was also noted to have a fever. He had a productive cough yesterday (03/06) but states that is better today. He has no body aches, no ST or ear pain. He had a BM this morning. No N/V/D. He does wear O2 at home but only at night. He was admitted to our facility in June of 2016 with right sided pneumonia which was diagnosed clinically, his CXR was negative at the time. Currently he has a CXR positive for RLL pneumonia. He does smoke approximately 2 ppd but "not all the days of the week". He has schizoaffective disorder controlled with medications. 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 He has done this for 8 years. His PCP is a Dr. Karlo Mackey in [place], [place]. - Patient Data Vitals - Most Recent: Last Vital Signs Temp 96.4 F 03/07/17 06:48 Pulse 73 03/07/17 06:48 Resp 20 03/07/17 06:48 BP 99/54 L 03/07/17 06:48 Pulse Ox 94 L 03/07/17 07:51 Weight - Most Recent: 192 lb 12.8 oz I&O - Last 24 Hours: Intake & Output 03/06/17 03/07/17 03/07/17 22:59 06:59 14:59 Intake Total 1371 1314 Output Total 50 425 Balance 1321 889 Lab Results Last 24 Hours: Laboratory Results - last 24 hr 03/06/17 03/07/17 03/07/17 Range/Units 19:35 07:15 07:15 WBC 21.7 H (5.0-10.0) 10^3/uL RBC 4.25 L (4.50-6.00) 10^6/uL Hgb 12.2 L (13.0-17.0) g/dL Hct 37.4 L (40.0-52.0) % MCV 88.1 (82.0-92.0) fL MCH 28.7 (27.0-31.0) pg MCHC 32.6 (32.0-36.0) g/dL RDW 15.7 H (11.5-14.5) % Plt Count 196 (150-300) 10^3/uL MPV 8.4 (7.4-10.4) fL Neut % (Auto) 92.3 H (50.0-70.0) % Lymph % (Auto) 4.5 L (20.0-40.0) % [place] % (Auto) 2.7 (2.0-8.0) % Eos % (Auto) 0.1 L (1.0-3.0) % Baso % (Auto) 0.4 (0.0-1.0) % Neut # (Auto) 20.0 H (2.5-7.0) 10^3/uL Lymph # (Auto) 1.0 (1.0-4.0) 10^3/uL [place] # (Auto) 0.6 (0.1-0.8) 10^3/uL Eos # (Auto) 0.0 L (0.1-0.3) 10^3/uL Baso # (Auto) 0.1 (0.0-0.1) 10^3/uL Sodium 146 H (136-145) mmol/L Potassium 4.1 (3.3-5.3) mmol/L Chloride 112 (98-115) mmol/L Carbon Dioxide 27.2 (21.0-32.0) mmol/L BUN 16 (6-25) mg/dL Creatinine 0.70 (0.51-1.17) mg/dL Est Cr Clr Drug Dosing 122.51 mL/min Estimated GFR (MDRD) > 60 mL/min Glucose 144 H (70-110) mg/dL Calcium 8.5 L (8.7-10.3) mg/dL Specimen Type Urincc Urine Color Shannon H (YELLOW) Urine Appearance Clear (CLEAR) Urine pH 5.5 (5.0-9.0) Ur Specific [place] 1.020 (1.005-1.030) Urine Protein 100 H (NEGATIVE) mg/dL Urine Glucose (UA) Negative (NEGATIVE) mg/dL Urine Ketones Trace H (NEGATIVE) mg/dL Urine Occult Blood Negative (NEGATIVE) Urine Nitrite Negative (NEGATIVE) Urine Bilirubin Negative (NEGATIVE) Urine Urobilinogen 0.2 (0.2-1.0) E.U./dL Ur Leukocyte Esterase Negative (NEGATIVE) Urine RBC Not seen /HPF Urine WBC 0-5 /HPF Ur Epithelial Cells Moderate H /LPF Amorphous Sediment Moderate H (0/HPF) /HPF Urine Bacteria Few (NONE TO FEW) /HPF Urine Mucus Many H (NEGATIVE) /LPF Med Orders - Current: Current Medications Albuterol/Ipratropium (Duoneb 3.0-0.5 Mg/3 Ml) 3 ml NEB Q4H PRN PRN Reason: Shortness Of Breath/wheezing Last Admin: 03/07/17 07:52 Dose: 3 ml Aspirin (Halfprin) 81 mg PO BRK [facility] Benztropine Mesylate (Cogentin) 1 mg PO BEDTIME [facility] Last Admin: 03/06/17 20:16 Dose: 1 mg Carvedilol (Coreg) 6.25 mg PO BID@0800,2000 [facility] Last Admin: 03/06/17 20:16 Dose: 6.25 mg Cetirizine HCl (Zyrtec) 10 mg PO DAILY [facility] Citalopram Hydrobromide (Celexa) 20 mg PO BEDTIME [facility] Last Admin: 03/06/17 20:16 Dose: 20 mg Clonazepam (Klonopin) 1.5 mg PO BEDTIME [facility] Last Admin: 03/06/17 20:53 Dose: 1.5 mg Clonazepam (Klonopin) 0.5 mg PO BID@0800,1200 [facility] Digoxin (Lanoxin) 125 mcg PO DAILY [facility] Famotidine (Pepcid) 20 mg PO BID [facility] Last Admin: 03/06/17 20:16 Dose: 20 mg Levofloxacin/Dextrose 500 mg/ (Premix) 100 mls @ 100 mls/hr IV Q24H [facility] Dextrose/Sodium Chloride (Dextrose 5%-1/2 Ns) 1,000 mls @ 125 mls/hr IV ASDIRECTED GRETA Methylprednisolone Sodium Succinate (Solu-Medrol) 80 mg IVPUSH Q8H [facility] Last Admin: 03/07/17 01:28 Dose: 80 mg Nicotine (Habitrol) 21 mg TRDERM DAILY [facility] Nicotine Polacrilex (Nicorelief) 4 mg CHEW Q2H PRN PRN Reason: Other Non-Formulary Medication (Clozapine) 600 mg PO BEDTIME [facility] Last Admin: 03/06/17 20:59 Dose: Not Given Senna/Docusate Sodium (Senna Plus) 1 tab PO DAILY PRN PRN Reason: Constipation Sodium Chloride (Syrex Flush) 5 ml FLUSH Q8HR PRN PRN Reason: Keep Vein Open Last Admin: 03/07/17 01:30 Dose: 5 ml Discontinued Medications Acetaminophen (Tylenol Extra Strength) 1,000 mg PO ONETIME ONE Stop: 03/06/17 18:15 Last Admin: 03/06/17 18:25 Dose: 1,000 mg Albuterol/Ipratropium (Duoneb 3.0-0.5 Mg/3 Ml) 3 ml NEB ONETIME ONE Stop: 03/06/17 18:24 Last Admin: 03/06/17 18:25 Dose: 3 ml Albuterol/Ipratropium (Duoneb 3.0-0.5 Mg/3 Ml) Confirm Administered Dose 3 ml .ROUTE .STK-MED ONE Stop: 03/06/17 18:25 Last Admin: 03/06/17 18:34 Dose: Not Given Atropine Sulfate (Atropine 0.1 Mg/Ml) 0 mg IVPUSH ASDIRECTED PRN PRN Reason: Heart Epinephrine HCl (Epinephrine 1:10,000) 1 mg IVPUSH ASDIRECTED PRN PRN Reason: Heart Sodium Chloride (Normal Saline) 1,000 mls @ 999 mls/hr IV .BOLUS ONE Stop: 03/06/17 19:14 Last Admin: 03/06/17 18:26 Dose: 999 mls/hr Levofloxacin/Dextrose 500 mg/ (Premix) 100 mls @ 100 mls/hr IV ONETIME ONE Stop: 03/06/17 19:56 Last Admin: 03/06/17 19:41 Dose: 100 mls/hr Levofloxacin/Dextrose 500 mg/ (Premix) 100 mls @ 100 mls/hr IV Q24H [facility] Last Admin: 03/06/17 19:53 Dose: Not Given Sodium Chloride (Normal Saline) 1,000 mls @ 125 mls/hr IV ASDIRECTED [facility] Last Admin: 03/07/17 04:45 Dose: 125 mls/hr Lidocaine HCl (Xylocaine 2%) 0 mg IVPUSH ASDIRECTED PRN PRN Reason: Heart Methylprednisolone Sodium Succinate (Solu-Medrol) 125 mg IVPUSH ONETIME ONE Stop: 03/06/17 18:24 Last Admin: 03/06/17 18:29 Dose: 125 mg Methylprednisolone Sodium Succinate (Solu-Medrol) Confirm Administered Dose 125 mg .ROUTE .STK-MED ONE Stop: 03/06/17 18:25 Last Admin: 03/06/17 18:34 Dose: Not Given Methylprednisolone Sodium Succinate (Solu-Medrol) 80 mg IVPUSH Q8H [facility] Last Admin: 03/06/17 19:54 Dose: Not Given Nicotine (Habitrol) 14 mg TRDERM DAILY [facility] Last Admin: 03/06/17 20:16 Dose: 14 mg Nicotine Polacrilex (Nicorelief) 4 mg CHEW Q2H PRN PRN Reason: Anxiety Nitroglycerin (Nitrostat) 0.4 mg SL ASDIRECTED PRN PRN Reason: Heart Non-Formulary Medication (Clonazepam [Klonopin]) 0.5 mg PO 0800 [facility] Non-Formulary Medication (Clonazepam [Klonopin]) 0.5 mg PO 1200 [facility] Non-Formulary Medication (Clonazepam [Klonopin]) 1.5 mg PO BEDTIME [facility] Non-Formulary Medication (Sennosides [Senokot]) 8.6 mg PO DAILY PRN PRN Reason: Constipation - Exam Quality Assessment: Supplemental Oxygen General: Alert, Cooperative, No Acute Distress Lungs: Decreased Breath Sounds, Wheezing (Mild wheeze, no rales.) GI/Abdominal Exam: Normal Bowel Sounds, Soft, Non-Tender, No Organomegaly Back Exam: Normal Inspection Extremities: Normal Inspection, No Pedal Edema - Problem List & Annotations (1) Pneumonia SNOMED Code(s): 604622203 Code(s): J18.9 - PNEUMONIA, UNSPECIFIED ORGANISM Status: Acute Current Visit: Yes Qualifiers: Pneumonia type: due to unspecified organism Laterality: right Lung location: lower lobe of lung Qualified Code(s): J18.1 - Lobar pneumonia, unspecified organism (2) COPD (chronic obstructive pulmonary disease) SNOMED Code(s): 39103805 Code(s): J44.9 - CHRONIC OBSTRUCTIVE PULMONARY DISEASE, UNSPECIFIED Status : Acute Current Visit: No Qualifiers: COPD type: unspecified COPD Qualified Code(s): J44.9 - Chronic obstructive pulmonary disease, unspecified (3) Schizoaffective disorder SNOMED Code(s): 94439825 Code(s): F25.9 - SCHIZOAFFECTIVE DISORDER, UNSPECIFIED Status: Acute Current Visit: No (4) Hypertension SNOMED Code(s): 64469050 Code(s): I10 - ESSENTIAL (PRIMARY) HYPERTENSION Status: Chronic Current Visit: No (5) Hypoxemia SNOMED Code(s): 486028948 Code(s): R09.02 - HYPOXEMIA Status: Resolved Current Visit: No - Problem List Review Problem List Initiated/Reviewed/Updated: Yes - My Orders Last 24 Hours: My Active Orders 03/07/17 08:50 Nicotine Polacrilex [Nicorelief] 4 mg CHEW Q2H PRN 03/07/17 09:00 Dextrose 5%-1/2 Normal Saline @ 125 MLS/HR(1000ml) Dextrose 5%-0.45% NaCl [ Dextrose 5%-1/2 NS] 1,000 ml IV ASDIRECTED Nicotine [Habitrol] 21 mg TRDERM DAILY 03/08/17 05:11 BMP [BASIC METABOLIC PANEL,BMP] [CHEM] AM CBC WITH AUTO DIFF [HEME] AM 03/09/17 05:11 BMP [BASIC METABOLIC PANEL,BMP] [CHEM] AM CBC WITH AUTO DIFF [HEME] AM 03/10/17 05:11 BMP [BASIC METABOLIC PANEL,BMP] [CHEM] AM CBC WITH AUTO DIFF [HEME] AM 03/11/17 05:11 BMP [BASIC METABOLIC PANEL,BMP] [CHEM] AM CBC WITH AUTO DIFF [HEME] AM 03/12/17 05:11 BMP [BASIC METABOLIC PANEL,BMP] [CHEM] AM CBC WITH AUTO DIFF [HEME] AM - Assessment Assessment:: RLL Pneumonia COPD Hypoxia HTN Schizoaffective disorder Current every day smoker - Plan Plan:: RLL Pneumonia. Levofloxacin 750 mg IV daily. COPD. Continue inhalers. Methylpredinsolone 80 mg IV q 8 hours through today, will reevaluate in AM. Hypoxia. Continue O2 to keep sats >90%. HTN. Continue outpatient meds. He is on digoxin for an unknown reason. He tells me "it is for my heart, my MD told me to take it after I had my cath". Schizoaffective disorder. Continue outpatient meds. Will see if we can use his Clozaril while here as this is NF for us. Current Every Day smoker. Nicotine transdermal 21 mg patch as well as nicotine gum 4 mg PO q 2 PRN. He is ambulatory in the room.
[2017-03-07] MEDS: Carvedilol 6.25 MG Tab PO SCH ×2 (09:07→19:36)
[2017-03-07] MEDS: Famotidine 20 MG Tab PO SCH ×2 (09:07→20:18)
[2017-03-07] MEDS: ClonazePAM 0.5 MG Tab PO SCH ×3 (09:07→20:21)
[2017-03-07] MEDS: Digoxin 125 MCG Tab PO SCH (09:07)
[2017-03-07] MEDS: Cetirizine 10 MG Tab PO SCH (09:08)
[2017-03-07] MEDS: Aspirin 81 MG Tab.EC PO SCH (09:08)
[2017-03-07] MEDS: Nicotine Polacrilex 4 MG Gum CHEW PRN ×3 (09:15→15:54)
[2017-03-07] MEDS: Albuterol/Ipratropium 3.0-0.5 MG/3 ML Neb Soln NEB SCH ×3 (14:38→22:06)
[2017-03-07] MEDS: Dextrose 5%-0.45% NaCl 1,000 ML IV SCH (17:41)
[2017-03-07] MEDS: Levofloxacin/Dextrose 5%-Water 500 MG in Premix Bag 1 BAG IV SCH (19:34)
[2017-03-07] MEDS: Benztropine 1 MG Tab PO SCH (20:17)
[2017-03-07] MEDS: Citalopram 20 MG Tab PO SCH (20:17)
[2017-03-07] MEDS: CLOZAPINE 100 MG PO SCH (20:18)
[2017-03-08] MEDS: methylPREDNISolone Sodium Succinate 125 MG/2 ML SDV IVPUSH SCH (02:11)
[2017-03-08] MEDS: Dextrose 5%-0.45% NaCl 1,000 ML IV SCH (04:42)
[2017-03-08] MEDS: Albuterol/Ipratropium 3.0-0.5 MG/3 ML Neb Soln NEB SCH ×4 (05:57→22:28)
[2017-03-08 07:58] LABS: CHLORIDE,CL 109 mmol/L (98-115); SODIUM,NA 144 mmol/L (136-145)
[2017-03-08] MEDS: Nicotine Polacrilex 4 MG Gum CHEW PRN ×4 (08:08→20:08)
[2017-03-08] MEDS: Cetirizine 10 MG Tab PO SCH (08:09)
[2017-03-08] MEDS: Famotidine 20 MG Tab PO SCH ×2 (08:09→20:05)
[2017-03-08] MEDS: Carvedilol 6.25 MG Tab PO SCH ×2 (08:09→20:05)
[2017-03-08] MEDS: Aspirin 81 MG Tab.EC PO SCH (08:09)
[2017-03-08] MEDS: ClonazePAM 0.5 MG Tab PO SCH ×3 (08:10→20:05)
[2017-03-08] MEDS: Nicotine 21 MG/24 Hr Patch TRDERM SCH (08:10)
[2017-03-08] MEDS: Digoxin 125 MCG Tab PO SCH (08:12)
[2017-03-08] MEDS ORDERED: Docusate Sodium Liquid 100 MG/10 ML UD Cup ONE (08:43)
--- NOTE | 2017-03-08 08:46 | PCM.PN ---
- General Info Date of Service: 03/08/17 Admission Dx/Problem (Free Text): RLL Pneumonia Subjective Update: Ghulam is seen today on inpatient rounds. He was admitted on 03/06/17 with RLL pneumonia. He states he is feeling better today than when he came in but he is not back to his baseline. He is still requiring oxygen, 3L, to keep sats >90%. He has a cough although states that is improved. Blood cultures have been negative but sputum is showing gram positive cocci. He has been afebrile for the past 24 hours. His blood pressure has come back up to his baseline. He would like to have his IVF's stopped if possible due to what he feels is excessive urination. He states he is drinking well and his appetite has been good. He states he had a BM this morning. He denies any pain. No N/V/D. No ST. - Patient Data Vitals - Most Recent: Last Vital Signs Temp 98.1 F 03/08/17 06:31 Pulse 88 03/08/17 08:12 Resp 20 03/08/17 06:31 BP 119/70 03/08/17 08:09 Pulse Ox 92 L 03/08/17 06:31 Weight - Most Recent: 192 lb 12.8 oz I&O - Last 24 Hours: Intake & Output 03/07/17 03/08/17 03/08/17 22:59 06:59 14:59 Intake Total 2700 792 Output Total 1550 2300 Balance 1150 -1508 Lab Results Last 24 Hours: Laboratory Results - last 24 hr 03/08/17 03/08/17 Range/Units 07:25 07:25 WBC 24.0 H (5.0-10.0) 10^3/uL RBC 4.27 L (4.50-6.00) 10^6/uL Hgb 12.2 L (13.0-17.0) g/dL Hct 37.6 L (40.0-52.0) % MCV 88.1 (82.0-92.0) fL MCH 28.6 (27.0-31.0) pg MCHC 32.5 (32.0-36.0) g/dL RDW 15.3 H (11.5-14.5) % Plt Count 235 (150-300) 10^3/uL MPV 8.4 (7.4-10.4) fL Neut % (Auto) 93.2 H (50.0-70.0) % Lymph % (Auto) 3.6 L (20.0-40.0) % [place] % (Auto) 3.1 (2.0-8.0) % Eos % (Auto) 0.0 L (1.0-3.0) % Baso % (Auto) 0.1 (0.0-1.0) % Neut # (Auto) 22.4 H (2.5-7.0) 10^3/uL Lymph # (Auto) 0.9 L (1.0-4.0) 10^3/uL [place] # (Auto) 0.7 (0.1-0.8) 10^3/uL Eos # (Auto) 0.0 L (0.1-0.3) 10^3/uL Baso # (Auto) 0.0 (0.0-0.1) 10^3/uL Sodium 144 (136-145) mmol/L Potassium 4.2 (3.3-5.3) mmol/L Chloride 109 (98-115) mmol/L Carbon Dioxide 24.9 (21.0-32.0) mmol/L BUN 13 (6-25) mg/dL Creatinine 0.54 (0.51-1.17) mg/dL Est Cr Clr Drug Dosing 158.81 mL/min Estimated GFR (MDRD) > 60 mL/min Glucose 174 H (70-110) mg/dL Calcium 8.7 (8.7-10.3) mg/dL Med Orders - Current: Current Medications Albuterol/Ipratropium (Duoneb 3.0-0.5 Mg/3 Ml) 3 ml NEB Q4H PRN PRN Reason: Shortness Of Breath/wheezing Last Admin: 03/07/17 12:28 Dose: 3 ml Albuterol/Ipratropium (Duoneb 3.0-0.5 Mg/3 Ml) 3 ml NEB Q6HRRT [facility] Last Admin: 03/08/17 05:57 Dose: 3 ml Aspirin (Halfprin) 81 mg PO BRK [facility] Last Admin: 03/08/17 08:09 Dose: 81 mg Benztropine Mesylate (Cogentin) 1 mg PO BEDTIME [facility] Last Admin: 03/07/17 20:17 Dose: 1 mg Carvedilol (Coreg) 6.25 mg PO BID@0800,2000 [facility] Last Admin: 03/08/17 08:09 Dose: 6.25 mg Cetirizine HCl (Zyrtec) 10 mg PO DAILY [facility] Last Admin: 03/08/17 08:09 Dose: 10 mg Citalopram Hydrobromide (Celexa) 20 mg PO BEDTIME [facility] Last Admin: 03/07/17 20:17 Dose: 20 mg Clonazepam (Klonopin) 1.5 mg PO BEDTIME [facility] Last Admin: 03/07/17 20:21 Dose: 1.5 mg Clonazepam (Klonopin) 0.5 mg PO BID@0800,1200 [facility] Last Admin: 03/08/17 08:10 Dose: 0.5 mg Digoxin (Lanoxin) 125 mcg PO DAILY [facility] Last Admin: 03/08/17 08:12 Dose: 125 mcg Famotidine (Pepcid) 20 mg PO BID [facility] Last Admin: 03/08/17 08:09 Dose: 20 mg Levofloxacin/Dextrose 500 mg/ (Premix) 100 mls @ 100 mls/hr IV Q24H [facility] Last Admin: 03/07/17 19:34 Dose: 100 mls/hr Methylprednisolone Sodium Succinate (Solu-Medrol) 80 mg IVPUSH Q8H [facility] Last Admin: 03/08/17 02:11 Dose: 80 mg Nicotine (Habitrol) 21 mg TRDERM DAILY [facility] Last Admin: 03/08/17 08:10 Dose: 21 mg Nicotine Polacrilex (Nicorelief) 4 mg CHEW Q2H PRN PRN Reason: Other Last Admin: 03/08/17 08:08 Dose: 4 mg Ptom Clozapine (100mg Tablet) 6 each PO BEDTIME [facility] Last Admin: 03/07/17 20:18 Dose: 6 each Senna/Docusate Sodium (Senna Plus) 1 tab PO DAILY PRN PRN Reason: Constipation Sodium Chloride (Syrex Flush) 5 ml FLUSH Q8HR PRN PRN Reason: Keep Vein Open Last Admin: 03/07/17 01:30 Dose: 5 ml Discontinued Medications Acetaminophen (Tylenol Extra Strength) 1,000 mg PO ONETIME ONE Stop: 03/06/17 18:15 Last Admin: 03/06/17 18:25 Dose: 1,000 mg Albuterol/Ipratropium (Duoneb 3.0-0.5 Mg/3 Ml) 3 ml NEB ONETIME ONE Stop: 03/06/17 18:24 Last Admin: 03/06/17 18:25 Dose: 3 ml Albuterol/Ipratropium (Duoneb 3.0-0.5 Mg/3 Ml) Confirm Administered Dose 3 ml .ROUTE .STK-MED ONE Stop: 03/06/17 18:25 Last Admin: 03/06/17 18:34 Dose: Not Given Atropine Sulfate (Atropine 0.1 Mg/Ml) 0 mg IVPUSH ASDIRECTED PRN PRN Reason: Heart Epinephrine HCl (Epinephrine 1:10,000) 1 mg IVPUSH ASDIRECTED PRN PRN Reason: Heart Sodium Chloride (Normal Saline) 1,000 mls @ 999 mls/hr IV .BOLUS ONE Stop: 03/06/17 19:14 Last Admin: 03/06/17 18:26 Dose: 999 mls/hr Levofloxacin/Dextrose 500 mg/ (Premix) 100 mls @ 100 mls/hr IV ONETIME ONE Stop: 03/06/17 19:56 Last Admin: 03/06/17 19:41 Dose: 100 mls/hr Levofloxacin/Dextrose 500 mg/ (Premix) 100 mls @ 100 mls/hr IV Q24H [facility] Last Admin: 03/06/17 19:53 Dose: Not Given Sodium Chloride (Normal Saline) 1,000 mls @ 125 mls/hr IV ASDIRECTED [facility] Last Admin: 03/07/17 04:45 Dose: 125 mls/hr Dextrose/Sodium Chloride (Dextrose 5%-1/2 Ns) 1,000 mls @ 125 mls/hr IV ASDIRECTED [facility] Last Admin: 03/07/17 09:15 Dose: 125 mls/hr Dextrose/Sodium Chloride (Dextrose 5%-1/2 Ns) 1,000 mls @ 100 mls/hr IV ASDIRECTED [facility] Last Admin: 03/08/17 04:42 Dose: 100 mls/hr Lidocaine HCl (Xylocaine 2%) 0 mg IVPUSH ASDIRECTED PRN PRN Reason: Heart Methylprednisolone Sodium Succinate (Solu-Medrol) 125 mg IVPUSH ONETIME ONE Stop: 03/06/17 18:24 Last Admin: 03/06/17 18:29 Dose: 125 mg Methylprednisolone Sodium Succinate (Solu-Medrol) Confirm Administered Dose 125 mg .ROUTE .STK-MED ONE Stop: 03/06/17 18:25 Last Admin: 03/06/17 18:34 Dose: Not Given Methylprednisolone Sodium Succinate (Solu-Medrol) 80 mg IVPUSH Q8H [facility] Last Admin: 03/06/17 19:54 Dose: Not Given Nicotine (Habitrol) 14 mg TRDERM DAILY [facility] Last Admin: 03/06/17 20:16 Dose: 14 mg Nicotine Polacrilex (Nicorelief) 4 mg CHEW Q2H PRN PRN Reason: Anxiety Nitroglycerin (Nitrostat) 0.4 mg SL ASDIRECTED PRN PRN Reason: Heart Non-Formulary Medication (Clonazepam [Klonopin]) 0.5 mg PO 0800 [facility] Non-Formulary Medication (Clonazepam [Klonopin]) 0.5 mg PO 1200 [facility] Non-Formulary Medication (Clonazepam [Klonopin]) 1.5 mg PO BEDTIME [facility] Non-Formulary Medication (Clozapine) 600 mg PO BEDTIME [facility] Last Admin: 03/06/17 20:59 Dose: Not Given Non-Formulary Medication (Sennosides [Senokot]) 8.6 mg PO DAILY PRN PRN Reason: Constipation - Exam Quality Assessment: Supplemental Oxygen General: Alert, Oriented, Cooperative, No Acute Distress Lungs: Decreased Breath Sounds, Other (He has transmitted bronchial breath sounds, improving after he coughs and has a large ball of phlegm coughed up. No wheezing today.) Cardiovascular: Regular Rate, Regular Rhythm, No Murmurs Extremities: Normal Inspection, No Pedal Edema Skin: Warm, Dry, Intact - Problem List & Annotations (1) Pneumonia SNOMED Code(s): 181768854 Code(s): J18.9 - PNEUMONIA, UNSPECIFIED ORGANISM Status: Acute Current Visit: Yes Qualifiers: Pneumonia type: due to unspecified organism Laterality: right Lung location: lower lobe of lung Qualified Code(s): J18.1 - Lobar pneumonia, unspecified organism (2) COPD (chronic obstructive pulmonary disease) SNOMED Code(s): 68273055 Code(s): J44.9 - CHRONIC OBSTRUCTIVE PULMONARY DISEASE, UNSPECIFIED Status : Acute Current Visit: No Qualifiers: COPD type: unspecified COPD Qualified Code(s): J44.9 - Chronic obstructive pulmonary disease, unspecified (3) Schizoaffective disorder SNOMED Code(s): 03135475 Code(s): F25.9 - SCHIZOAFFECTIVE DISORDER, UNSPECIFIED Status: Acute Current Visit: No (4) Hypertension SNOMED Code(s): 42692402 Code(s): I10 - ESSENTIAL (PRIMARY) HYPERTENSION Status: Chronic Current Visit: No (5) Hypoxemia SNOMED Code(s): 395385327 Code(s): R09.02 - HYPOXEMIA Status: Resolved Current Visit: No - Problem List Review Problem List Initiated/Reviewed/Updated: Yes - My Orders Last 24 Hours: My Active Orders 03/07/17 08:50 Nicotine Polacrilex [Nicorelief] 4 mg CHEW Q2H PRN 03/07/17 09:00 Nicotine [Habitrol] 21 mg TRDERM DAILY 03/07/17 14:00 Albuterol/Ipratropium [DuoNeb 3.0-0.5 MG/3 ML] 3 ml NEB Q6HRRT 03/07/17 Dinner Regular Diet [DIET] 03/09/17 05:11 BMP [BASIC METABOLIC PANEL,BMP] [CHEM] AM CBC WITH AUTO DIFF [HEME] AM 03/10/17 05:11 BMP [BASIC METABOLIC PANEL,BMP] [CHEM] AM CBC WITH AUTO DIFF [HEME] AM 03/11/17 05:11 BMP [BASIC METABOLIC PANEL,BMP] [CHEM] AM CBC WITH AUTO DIFF [HEME] AM 03/12/17 05:11 BMP [BASIC METABOLIC PANEL,BMP] [CHEM] AM CBC WITH AUTO DIFF [HEME] AM - Assessment Assessment:: RLL Pneumonia Leukocytosis COPD Hypoxia HTN Schizoaffective disorder Current every day smoker - Plan Plan:: RLL Pneumonia. Levofloxacin 500 mg IV daily. Leukocytosis. Likely related to both his PNA as well as his steroid use. As he is no longer wheezing will decrease steroids today (see below). COPD. Continue inhalers. I am going to change him to prednisone 40 mg PO daily x 3 days. Hypoxia. Continue O2 to keep sats >90%. HTN. Continue outpatient meds. He is on digoxin for an unknown reason. He tells me "it is for my heart, my MD told me to take it after I had my cath". Schizoaffective disorder. Continue outpatient meds. Current Every Day smoker. Nicotine transdermal 21 mg patch as well as nicotine gum 4 mg PO q 2 PRN. He is ambulatory in the room. Will discontinue IVF's today. Daily CBC and BMP.
[2017-03-08] MEDS: CLOZAPINE 100 MG PO SCH (20:05)
[2017-03-08] MEDS: Citalopram 20 MG Tab PO SCH (20:05)
[2017-03-08] MEDS: Benztropine 1 MG Tab PO SCH (20:05)
[2017-03-08] MEDS: Levofloxacin/Dextrose 5%-Water 500 MG in Premix Bag 1 BAG IV SCH (20:13)
[2017-03-09] MEDS: Albuterol/Ipratropium 3.0-0.5 MG/3 ML Neb Soln NEB SCH (05:38)
[2017-03-09 07:44] LABS: CHLORIDE,CL 110 mmol/L (98-115); SODIUM,NA 146 mmol/L (136-145)
[2017-03-09] MEDS: Nicotine 21 MG/24 Hr Patch TRDERM SCH (08:08)
[2017-03-09] MEDS: ClonazePAM 0.5 MG Tab PO SCH (08:09)
[2017-03-09] MEDS: Aspirin 81 MG Tab.EC PO SCH (08:09)
[2017-03-09] MEDS: Cetirizine 10 MG Tab PO SCH (08:09)
[2017-03-09] MEDS: Digoxin 125 MCG Tab PO SCH (08:10)
[2017-03-09] MEDS: Carvedilol 6.25 MG Tab PO SCH (08:10)
[2017-03-09] MEDS: Famotidine 20 MG Tab PO SCH (08:10)
[2017-03-09] MEDS: Nicotine Polacrilex 4 MG Gum CHEW PRN (08:11)
[2017-03-09 08:13] VITALS: BP 145/81
--- NOTE | 2017-03-09 08:53 | PCM.DCSUM1 ---
Discharge Summary - Hospital Course Free Text/Narrative:: Ghulam is being discharged today from inpatient stay from 03/06/17 - 03/09/17 for RLL pneumonia with associated hypoxia and increasing oxygen requirements as well as leukocytosis. He will be transitioned to [facility] for IV antibiotics to continue as well as for PT eval and treat and to try to work on getting his oxygen levels back to his pre-illness levels. He does wear O2 at night. While in the hospital he has received levofloxacin 500 mg IV daily since 03/06, today is day 4 of antibiotics. He also was on solumedrol 80 mg IV q 8 hours through his final dose yesterday morning at 2AM. He will start on prednisone 40 mg PO daily x 5 days and then depending on his status, we can consider discontinuing. Blood cultures have been negative to date. Sputum culture is pending. WBC has trended down to 18 today from a high of 24 yesterday. He was febrile and had hypotension at admission. This has resolved. Home meds have been continued. Initially he was on some IVF's but this was able to be discontinued on 03/08/17. Sodium slightly elevated today at 146 (145 ULN). He was encouraged to continue drinking plenty of fluids. This discharge summary serves as an admission H&P to [facility]. - Discharge Data Discharge Date: 03/09/17 Discharge Disposition: DC/Tfer W/I Hosp To [facility] Condition: Good - Discharge Diagnosis/Problem(s) (1) Pneumonia SNOMED Code(s): 311432112 ICD Code: J18.9 - PNEUMONIA, UNSPECIFIED ORGANISM Status: Acute Current Visit: Yes Qualifiers: Pneumonia type: due to unspecified organism Laterality: right Lung location: lower lobe of lung Qualified Code(s): J18.1 - Lobar pneumonia, unspecified organism (2) COPD (chronic obstructive pulmonary disease) SNOMED Code(s): 34874879 ICD Code: J44.9 - CHRONIC OBSTRUCTIVE PULMONARY DISEASE, UNSPECIFIED Status : Acute Current Visit: No Qualifiers: COPD type: unspecified COPD Qualified Code(s): J44.9 - Chronic obstructive pulmonary disease, unspecified (3) Schizoaffective disorder SNOMED Code(s): 20811704 ICD Code: F25.9 - SCHIZOAFFECTIVE DISORDER, UNSPECIFIED Status: Acute Current Visit: No (4) Hypertension SNOMED Code(s): 37449956 ICD Code: I10 - ESSENTIAL (PRIMARY) HYPERTENSION Status: Chronic Current Visit: No (5) Hypoxemia SNOMED Code(s): 756965759 ICD Code: R09.02 - HYPOXEMIA Status: Resolved Current Visit: No - Discharge Plan Home Medications: Home Meds Benztropine [Cogentin] 1 mg PO BEDTIME 10/20/13 [History] Citalopram [Citalopram HBr] 20 mg PO BEDTIME 10/20/13 [History] cloZAPine 600 mg PO BEDTIME 10/20/13 [History] ClonazePAM [KlonoPIN] 0.5 mg PO 0800 10/27/15 [History] ClonazePAM [KlonoPIN] 1.5 mg PO BEDTIME 10/27/15 [History] Albuterol Sulfate [Proair Hfa] 2 puff INH Q4H PRN 10/30/15 [History] ClonazePAM [KlonoPIN] 0.5 mg PO 1200 12/28/15 [History] Fluticasone/Salmeterol [Advair Hfa 230-21 Mcg Inhaler] 2 puff INH BID 12/28/15 [ History] Aspirin [Halfprin] 81 mg PO BRK 06/27/16 [History] Carvedilol 6.25 mg PO BID@0800,199906/27/16 [History] Digoxin 125 mcg PO DAILY 06/27/16 [History] Tiotropium [Spiriva Handihaler] 18 mcg INH DAILY 07/02/16 [History] Cetirizine [ZyrTEC] 10 mg PO DAILY 03/06/17 [History] Famotidine [Pepcid] 20 mg PO BID 03/06/17 [History] Sennosides [Senokot] 8.6 mg PO DAILY PRN 03/06/17 [History] Forms: ED Department Discharge Referrals: PCP,Not In Area [Primary Care Provider] - - General Info Admission Dx/Problem (Free Text: RLL Pneumonia - Review of Systems Systems Review Comment: Ghulam states he feels better today. He still has a productive cough. Appetite has been OK and he has been passing his bowels and urine. - Patient Data Vitals - Most Recent: Last Vital Signs Temp 97.6 F 03/09/17 06:43 Pulse 79 03/09/17 08:10 Resp 20 03/09/17 06:43 BP 145/81 H 03/09/17 08:10 Pulse Ox 94 L 03/09/17 06:43 Weight - Most Recent: 192 lb 12.8 oz I&O - Last 24 hours: Intake & Output 03/08/17 03/09/17 03/09/17 22:59 06:59 14:59 Intake Total 825 360 Output Total 2850 1450 Balance -2024 Lab Results - Last 24 hrs: Laboratory Results - last 24 hr 03/09/17 03/09/17 Range/Units 07:15 07:15 WBC 18.2 H (5.0-10.0) 10^3/uL RBC 4.31 L (4.50-6.00) 10^6/uL Hgb 12.0 L (13.0-17.0) g/dL Hct 38.1 L (40.0-52.0) % MCV 88.5 (82.0-92.0) fL MCH 27.9 (27.0-31.0) pg MCHC 31.5 L (32.0-36.0) g/dL RDW 15.9 H (11.5-14.5) % Plt Count 299 (150-300) 10^3/uL MPV 8.0 (7.4-10.4) fL Neut % (Auto) 89.3 H (50.0-70.0) % Lymph % (Auto) 5.9 L (20.0-40.0) % [place] % (Auto) 4.6 (2.0-8.0) % Eos % (Auto) 0.1 L (1.0-3.0) % Baso % (Auto) 0.1 (0.0-1.0) % Neut # (Auto) 16.3 H (2.5-7.0) 10^3/uL Lymph # (Auto) 1.1 (1.0-4.0) 10^3/uL [place] # (Auto) 0.8 (0.1-0.8) 10^3/uL Eos # (Auto) 0.0 L (0.1-0.3) 10^3/uL Baso # (Auto) 0.0 (0.0-0.1) 10^3/uL Sodium 146 H (136-145) mmol/L Potassium 4.1 (3.3-5.3) mmol/L Chloride 110 (98-115) mmol/L Carbon Dioxide 28.0 (21.0-32.0) mmol/L BUN 17 (6-25) mg/dL Creatinine 0.64 (0.51-1.17) mg/dL Est Cr Clr Drug Dosing 134.00 mL/min Estimated GFR (MDRD) > 60 mL/min Glucose 116 H (70-110) mg/dL Calcium 8.5 L (8.7-10.3) mg/dL Med Orders - Current: Current Medications Albuterol/Ipratropium (Duoneb 3.0-0.5 Mg/3 Ml) 3 ml NEB Q4H PRN PRN Reason: Shortness Of Breath/wheezing Last Admin: 03/07/17 12:28 Dose: 3 ml Albuterol/Ipratropium (Duoneb 3.0-0.5 Mg/3 Ml) 3 ml NEB Q6HRRT [facility] Last Admin: 03/09/17 05:38 Dose: 3 ml Aspirin (Halfprin) 81 mg PO BRK [facility] Last Admin: 03/09/17 08:09 Dose: 81 mg Benztropine Mesylate (Cogentin) 1 mg PO BEDTIME [facility] Last Admin: 03/08/17 20:05 Dose: 1 mg Carvedilol (Coreg) 6.25 mg PO BID@0800,2000 [facility] Last Admin: 03/09/17 08:10 Dose: 6.25 mg Cetirizine HCl (Zyrtec) 10 mg PO DAILY [facility] Last Admin: 03/09/17 08:09 Dose: 10 mg Citalopram Hydrobromide (Celexa) 20 mg PO BEDTIME [facility] Last Admin: 03/08/17 20:05 Dose: 20 mg Clonazepam (Klonopin) 1.5 mg PO BEDTIME [facility] Last Admin: 03/08/17 20:05 Dose: 1.5 mg Clonazepam (Klonopin) 0.5 mg PO BID@0800,1200 [facility] Last Admin: 03/09/17 08:09 Dose: 0.5 mg Digoxin (Lanoxin) 125 mcg PO DAILY [facility] Last Admin: 03/09/17 08:10 Dose: 125 mcg Famotidine (Pepcid) 20 mg PO BID [facility] Last Admin: 03/09/17 08:10 Dose: 20 mg Levofloxacin/Dextrose 500 mg/ (Premix) 100 mls @ 100 mls/hr IV Q24H [facility] Last Admin: 03/08/17 20:13 Dose: 100 mls/hr Nicotine (Habitrol) 21 mg TRDERM DAILY [facility] Last Admin: 03/09/17 08:08 Dose: 21 mg Nicotine Polacrilex (Nicorelief) 4 mg CHEW Q2H PRN PRN Reason: Other Last Admin: 03/09/17 08:11 Dose: 4 mg Ptom Clozapine (100mg Tablet) 6 each PO BEDTIME [facility] Last Admin: 03/08/17 20:05 Dose: 6 each Prednisone (Prednisone) 40 mg PO WITHBREAKFAST [facility] Stop: 03/11/17 08:01 Last Admin: 03/09/17 08:11 Dose: 40 mg Senna/Docusate Sodium (Senna Plus) 1 tab PO DAILY PRN PRN Reason: Constipation Sodium Chloride (Syrex Flush) 5 ml FLUSH Q8HR PRN PRN Reason: Keep Vein Open Last Admin: 03/07/17 01:30 Dose: 5 ml Discontinued Medications Acetaminophen (Tylenol Extra Strength) 1,000 mg PO ONETIME ONE Stop: 03/06/17 18:15 Last Admin: 03/06/17 18:25 Dose: 1,000 mg Albuterol/Ipratropium (Duoneb 3.0-0.5 Mg/3 Ml) 3 ml NEB ONETIME ONE Stop: 03/06/17 18:24 Last Admin: 03/06/17 18:25 Dose: 3 ml Albuterol/Ipratropium (Duoneb 3.0-0.5 Mg/3 Ml) Confirm Administered Dose 3 ml .ROUTE .STK-MED ONE Stop: 03/06/17 18:25 Last Admin: 03/06/17 18:34 Dose: Not Given Atropine Sulfate (Atropine 0.1 Mg/Ml) 0 mg IVPUSH ASDIRECTED PRN PRN Reason: Heart Docusate Sodium (Colace 50 Mg/5 Ml Liquid) 10 mg .XX ONETIME ONE Stop: 03/08/17 08:44 Last Admin: 03/08/17 10:40 Dose: 20 mg Epinephrine HCl (Epinephrine 1:10,000) 1 mg IVPUSH ASDIRECTED PRN PRN Reason: Heart Sodium Chloride (Normal Saline) 1,000 mls @ 999 mls/hr IV .BOLUS ONE Stop: 03/06/17 19:14 Last Admin: 03/06/17 18:26 Dose: 999 mls/hr Levofloxacin/Dextrose 500 mg/ (Premix) 100 mls @ 100 mls/hr IV ONETIME ONE Stop: 03/06/17 19:56 Last Admin: 03/06/17 19:41 Dose: 100 mls/hr Levofloxacin/Dextrose 500 mg/ (Premix) 100 mls @ 100 mls/hr IV Q24H [facility] Last Admin: 03/06/17 19:53 Dose: Not Given Sodium Chloride (Normal Saline) 1,000 mls @ 125 mls/hr IV ASDIRECTED [facility] Last Admin: 03/07/17 04:45 Dose: 125 mls/hr Dextrose/Sodium Chloride (Dextrose 5%-1/2 Ns) 1,000 mls @ 125 mls/hr IV ASDIRECTED [facility] Last Admin: 03/07/17 09:15 Dose: 125 mls/hr Dextrose/Sodium Chloride (Dextrose 5%-1/2 Ns) 1,000 mls @ 100 mls/hr IV ASDIRECTED [facility] Last Admin: 03/08/17 04:42 Dose: 100 mls/hr Lidocaine HCl (Xylocaine 2%) 0 mg IVPUSH ASDIRECTED PRN PRN Reason: Heart Methylprednisolone Sodium Succinate (Solu-Medrol) 125 mg IVPUSH ONETIME ONE Stop: 03/06/17 18:24 Last Admin: 03/06/17 18:29 Dose: 125 mg Methylprednisolone Sodium Succinate (Solu-Medrol) Confirm Administered Dose 125 mg .ROUTE .STK-MED ONE Stop: 03/06/17 18:25 Last Admin: 03/06/17 18:34 Dose: Not Given Methylprednisolone Sodium Succinate (Solu-Medrol) 80 mg IVPUSH Q8H [facility] Last Admin: 03/06/17 19:54 Dose: Not Given Methylprednisolone Sodium Succinate (Solu-Medrol) 80 mg IVPUSH Q8H [facility] Last Admin: 03/08/17 02:11 Dose: 80 mg Nicotine (Habitrol) 14 mg TRDERM DAILY [facility] Last Admin: 03/06/17 20:16 Dose: 14 mg Nicotine Polacrilex (Nicorelief) 4 mg CHEW Q2H PRN PRN Reason: Anxiety Nitroglycerin (Nitrostat) 0.4 mg SL ASDIRECTED PRN PRN Reason: Heart Non-Formulary Medication (Clonazepam [Klonopin]) 0.5 mg PO 0800 [facility] Non-Formulary Medication (Clonazepam [Klonopin]) 0.5 mg PO 1200 [facility] Non-Formulary Medication (Clonazepam [Klonopin]) 1.5 mg PO BEDTIME [facility] Non-Formulary Medication (Clozapine) 600 mg PO BEDTIME [facility] Last Admin: 03/06/17 20:59 Dose: Not Given Non-Formulary Medication (Sennosides [Senokot]) 8.6 mg PO DAILY PRN PRN Reason: Constipation - Exam Quality Assessment: Reports: Supplemental Oxygen General: Reports: Alert, Oriented, Cooperative, No Acute Distress Lungs: Reports: Decreased Breath Sounds, Other (Coarse breath sounds bilaterally with transmitted bronchial breath sounds.) Cardiovascular: Reports: Regular Rate, Regular Rhythm, No Murmurs GI/Abdominal Exam: Normal Bowel Sounds Extremities: Normal Inspection, No Pedal Edema *Q Meaningful Use (DIS) - VTE *Q VTE Criteria *Q: - Stroke *Q Stroke Criteria *Q: - AMI *Q AMI Criteria *Q:
[2017-03-09] MEDS ORDERED: predniSONE 20 MG Tab PO SCH (09:00)
== END 2017-03-09 09:00 | disposition swing bed (61) | DRG 190 ==
LOC: KA.ED 17:40 → UNDOADMIN 19:03 → KA.MS 19:03
PROVIDERS: ADMIT Physician Assistant Medical; ATTEND Internal Medicine
DX: J44.0 Chronic obstructive pulmonary disease with (acute) lower respiratory infection (principal); J18.1 Lobar pneumonia, unspecified organism; J13 Pneumonia due to Streptococcus pneumoniae; F41.9 Anxiety disorder, unspecified; F25.0 Schizoaffective disorder, bipolar type; R09.02 Hypoxemia; D72.829 Elevated white blood cell count, unspecified; I10 Essential (primary) hypertension; F17.200 Nicotine dependence, unspecified, uncomplicated; F25.9 Schizoaffective disorder, unspecified; Z79.899 Other long term (current) drug therapy
CPT/HCPCS: 36415; 71020; 80053; 83605; 85025; 87040 ×2; 87070; 87077; 87186; 87205; 93005; 94640; 96361; 96374; 99285; A9270; J2930; J7030; 80048; 81001; J1956; J7042

== ENCOUNTER 2017-03-09 08:42 | Inpatient (IN) | payer MEDICARE, MEDICAID ==
[2017-03-09] MEDS ORDERED: Albuterol/Ipratropium 3.0-0.5 MG/3 ML Neb Soln NEB PRN (08:55)
[2017-03-09] MEDS ORDERED: Sodium Chloride 0.9% 5 ML Syringe FLUSH PRN ×2 (08:55)
[2017-03-09] MEDS: Famotidine 20 MG Tab PO SCH ×2 (09:30→20:22)
[2017-03-09] MEDS: Cetirizine 10 MG Tab PO SCH (09:30)
[2017-03-09] MEDS: Digoxin 125 MCG Tab PO SCH (09:30)
[2017-03-09] MEDS: Nicotine 21 MG/24 Hr Patch TRDERM SCH (09:30)
[2017-03-09] MEDS: Albuterol/Ipratropium 3.0-0.5 MG/3 ML Neb Soln NEB SCH ×3 (11:02→23:28)
[2017-03-09] MEDS: Enoxaparin 30 MG/0.3 ML Syringe SUBCUT SCH (11:41)
[2017-03-09] MEDS: ClonazePAM 0.5 MG Tab PO SCH ×2 (11:42→20:27)
[2017-03-09] MEDS: Nicotine Polacrilex 4 MG Gum CHEW PRN ×2 (15:13→18:51)
[2017-03-09] MEDS: Levofloxacin/Dextrose 5%-Water 500 MG in Premix Bag 1 BAG IV SCH ×2 (19:57→20:12)
[2017-03-09] MEDS: Carvedilol 6.25 MG Tab PO SCH (20:20)
[2017-03-09] MEDS: Citalopram 20 MG Tab PO SCH (20:21)
[2017-03-09] MEDS: Benztropine 1 MG Tab PO SCH (20:22)
[2017-03-09] MEDS: CLOZAPINE 100 MG PO SCH (20:23)
[2017-03-10] MEDS: Albuterol/Ipratropium 3.0-0.5 MG/3 ML Neb Soln NEB SCH ×4 (05:54→22:34)
[2017-03-10 07:57] LABS: CHLORIDE,CL 110 mmol/L (98-115); SODIUM,NA 146 mmol/L (136-145)
[2017-03-10] MEDS: Carvedilol 6.25 MG Tab PO SCH ×2 (08:56→20:14)
[2017-03-10] MEDS: Nicotine 21 MG/24 Hr Patch TRDERM SCH (08:57)
[2017-03-10] MEDS: predniSONE 20 MG Tab PO SCH (08:57)
[2017-03-10] MEDS: ClonazePAM 0.5 MG Tab PO SCH ×3 (08:57→20:16)
[2017-03-10] MEDS: Aspirin 81 MG Tab.EC PO SCH (08:57)
[2017-03-10] MEDS: Cetirizine 10 MG Tab PO SCH (08:58)
[2017-03-10] MEDS: Digoxin 125 MCG Tab PO SCH (08:58)
[2017-03-10] MEDS: Famotidine 20 MG Tab PO SCH ×2 (08:58→20:16)
[2017-03-10] MEDS: Enoxaparin 30 MG/0.3 ML Syringe SUBCUT SCH (08:58)
[2017-03-10] MEDS: Nicotine Polacrilex 4 MG Gum CHEW PRN ×3 (09:04→17:07)
[2017-03-10] MEDS: cefTRIAXone 1 GM Vial IVPUSH SCH (11:41)
[2017-03-10] MEDS: Citalopram 20 MG Tab PO SCH (20:15)
[2017-03-10] MEDS: Benztropine 1 MG Tab PO SCH (20:15)
[2017-03-10] MEDS: CLOZAPINE 100 MG PO SCH (20:17)
[2017-03-11] MEDS: Albuterol/Ipratropium 3.0-0.5 MG/3 ML Neb Soln NEB SCH ×4 (06:03→22:27)
[2017-03-11 07:45] LABS: CHLORIDE,CL 106 mmol/L (98-115); SODIUM,NA 145 mmol/L (136-145)
--- NOTE | 2017-03-11 09:29 | PCM.PN ---
- General Info Date of Service: 03/11/17 Admission Dx/Problem (Free Text): Right lower lobe pneumonia due to Strep pneumo and E. Coli. - Review of Systems Systems Review Comment:: Ghulam is seen today on swingbed rounds. He was admitted inpatient from - 03/09/17 and changed to swingbed on 03/09/17 for IV antibiotics. He had a PT evaluation that deemed him safe for independent ambulation. He states he is feeling better from a breathing perspective but has not had a good BM in a few days and is starting to feel a little constipated. I note his WBC has increased today from 13,000 yesterday to 18,000 today although no fever and Oxygen requirement is down to 2L during the day. Remainder of his labs are stable. Yesterday his sputum culture came back positive for Strep pneumo and E. Coli. Sensitivities were not run for the strep but were for E. Coli and it was resistant to the Levofloxacin he had been getting so he is now on rocephin 1 gram IV daily. That started on 03/10/17. - Patient Data Vitals - Most Recent: Last Vital Signs Temp 98.1 F 03/11/17 07:00 Pulse 79 03/11/17 07:00 Resp 20 03/11/17 07:00 BP 141/85 H 03/11/17 07:00 Pulse Ox 90 L 03/11/17 07:00 Weight - Most Recent: 202 lb I&O - Last 24 Hours: Intake & Output 03/10/17 03/11/17 03/11/17 22:59 06:59 14:59 Intake Total 2000 100 Output Total 800 Balance 2000 -700 Lab Results Last 24 Hours: Laboratory Results - last 24 hr 03/11/17 03/11/17 Range/Units 07:10 07:10 WBC 18.0 H (5.0-10.0) 10^3/uL RBC 4.66 (4.50-6.00) 10^6/uL Hgb 13.3 (13.0-17.0) g/dL Hct 41.1 (40.0-52.0) % MCV 88.2 (82.0-92.0) fL MCH 28.6 (27.0-31.0) pg MCHC 32.4 (32.0-36.0) g/dL RDW 15.9 H (11.5-14.5) % Plt Count 345 H (150-300) 10^3/uL MPV 7.7 (7.4-10.4) fL Neut % (Auto) 84.3 H (50.0-70.0) % Lymph % (Auto) 10.5 L (20.0-40.0) % [place] % (Auto) 3.6 (2.0-8.0) % Eos % (Auto) 1.3 (1.0-3.0) % Baso % (Auto) 0.3 (0.0-1.0) % Neut # (Auto) 15.2 H (2.5-7.0) 10^3/uL Lymph # (Auto) 1.9 (1.0-4.0) 10^3/uL [place] # (Auto) 0.6 (0.1-0.8) 10^3/uL Eos # (Auto) 0.2 (0.1-0.3) 10^3/uL Baso # (Auto) 0.1 (0.0-0.1) 10^3/uL Sodium 145 (136-145) mmol/L Potassium 3.7 (3.3-5.3) mmol/L Chloride 106 (98-115) mmol/L Carbon Dioxide 31.6 (21.0-32.0) mmol/L BUN 16 (6-25) mg/dL Creatinine 0.65 (0.51-1.17) mg/dL Est Cr Clr Drug Dosing 131.94 mL/min Estimated GFR (MDRD) > 60 mL/min Glucose 93 (70-110) mg/dL Calcium 8.7 (8.7-10.3) mg/dL Med Orders - Current: Current Medications Albuterol/Ipratropium (Duoneb 3.0-0.5 Mg/3 Ml) 3 ml NEB Q4H PRN PRN Reason: Shortness Of Breath/wheezing Albuterol/Ipratropium (Duoneb 3.0-0.5 Mg/3 Ml) 3 ml NEB Q6HRRT [facility] Last Admin: 03/11/17 06:03 Dose: 3 ml Aspirin (Halfprin) 81 mg PO BRK [facility] Last Admin: 03/10/17 08:57 Dose: 81 mg Benztropine Mesylate (Cogentin) 1 mg PO BEDTIME [facility] Last Admin: 03/10/17 20:15 Dose: 1 mg Carvedilol (Coreg) 6.25 mg PO BID@0800,2000 [facility] Last Admin: 03/10/17 20:14 Dose: 6.25 mg Ceftriaxone Sodium (Rocephin) 1 gm IVPUSH Q24H [facility] Last Admin: 03/10/17 11:41 Dose: 1 gm Cetirizine HCl (Zyrtec) 10 mg PO DAILY [facility] Last Admin: 03/10/17 08:58 Dose: 10 mg Citalopram Hydrobromide (Celexa) 20 mg PO BEDTIME [facility] Last Admin: 03/10/17 20:15 Dose: 20 mg Clonazepam (Klonopin) 1.5 mg PO BEDTIME [facility] Last Admin: 03/10/17 20:16 Dose: 1.5 mg Clonazepam (Klonopin) 0.5 mg PO BID@0800,1200 [facility] Last Admin: 03/10/17 11:41 Dose: 0.5 mg Digoxin (Lanoxin) 125 mcg PO DAILY [facility] Last Admin: 03/10/17 08:58 Dose: 125 mcg Enoxaparin Sodium (Lovenox) 30 mg SUBCUT DAILY [facility] Last Admin: 03/10/17 08:58 Dose: 30 mg Famotidine (Pepcid) 20 mg PO BID [facility] Last Admin: 03/10/17 20:16 Dose: 20 mg Nicotine (Habitrol) 21 mg TRDERM DAILY [facility] Last Admin: 03/10/17 08:57 Dose: 21 mg Nicotine Polacrilex (Nicorelief) 4 mg CHEW Q2H PRN PRN Reason: Other Last Admin: 03/10/17 17:07 Dose: 4 mg Ptom Clozapine (100mg) 6 each PO BEDTIME [facility] Last Admin: 03/10/17 20:17 Dose: 6 each Senna/Docusate Sodium (Senna Plus) 1 tab PO DAILY PRN PRN Reason: Constipation Sodium Chloride (Syrex Flush) 5 ml FLUSH Q8HR PRN PRN Reason: Keep Vein Open Last Admin: 03/10/17 11:41 Dose: 5 ml Discontinued Medications Levofloxacin/Dextrose 500 mg/ (Premix) 100 mls @ 100 mls/hr IV Q24H [facility] Last Admin: 03/09/17 20:12 Dose: 100 mls/hr Prednisone (Prednisone) 40 mg PO WITHBREAKFAST [facility] Stop: 03/11/17 08:01 Last Admin: 03/10/17 08:57 Dose: 40 mg - Exam Quality Assessment: Supplemental Oxygen General: Alert, Oriented, Cooperative, No Acute Distress Lungs: Decreased Breath Sounds, Crackles (Faint crackles diffusely) Cardiovascular: Regular Rate, Regular Rhythm, No Murmurs Extremities: No Pedal Edema - Problem List & Annotations (1) Pneumonia of right lower lobe due to Escherichia coli SNOMED Code(s): 320516665 Code(s): J15.5 - PNEUMONIA DUE TO ESCHERICHIA COLI Status: Acute Current Visit: Yes (2) Pneumonia of right lower lobe due to group B Streptococcus SNOMED Code(s): 528217522 Code(s): J15.3 - PNEUMONIA DUE TO STREPTOCOCCUS, GROUP B Status: Acute Current Visit: Yes (3) COPD (chronic obstructive pulmonary disease) SNOMED Code(s): 54448196 Code(s): J44.9 - CHRONIC OBSTRUCTIVE PULMONARY DISEASE, UNSPECIFIED Status : Acute Current Visit: No (4) Constipation SNOMED Code(s): 29099630 Code(s): K59.00 - CONSTIPATION, UNSPECIFIED Status: Acute Current Visit: No (5) Schizoaffective disorder SNOMED Code(s): 00499539 Code(s): F25.9 - SCHIZOAFFECTIVE DISORDER, UNSPECIFIED Status: Acute Current Visit: No (6) Hypoxemia SNOMED Code(s): 719277720 Code(s): R09.02 - HYPOXEMIA Status: Resolved Current Visit: No - Problem List Review Problem List Initiated/Reviewed/Updated: Yes - My Orders Last 24 Hours: My Active Orders 03/12/17 05:11 BMP [BASIC METABOLIC PANEL,BMP] [CHEM] AM CBC WITH AUTO DIFF [HEME] AM - Assessment Assessment:: RLL pneumonia due to Strep pneumo and E. Coli Leukocytosis HTN Schizoaffective disorder COPD - Plan Plan:: RLL pneumonia due to Strep pneumo and E. Coli. Continue on ceftriaxone. Leukocytosis. Daily labs. HTN. Continue home meds. Schizoaffective disorder. Continue home meds. COPD. Continue home meds, also continue oxygen. Goal is to get off oxygen during the day. Anticipate another week in the hospital to receive IV antibiotics.
[2017-03-11] MEDS: Nicotine Polacrilex 4 MG Gum CHEW PRN ×5 (09:43→20:39)
[2017-03-11] MEDS: Polyethylene Glycol 3350 Powder 17 GM Packet PO SCH (09:46)
[2017-03-11] MEDS: Famotidine 20 MG Tab PO SCH ×2 (09:46→20:39)
[2017-03-11] MEDS: Cetirizine 10 MG Tab PO SCH (09:46)
[2017-03-11] MEDS: Nicotine 21 MG/24 Hr Patch TRDERM SCH (09:47)
[2017-03-11] MEDS: Enoxaparin 30 MG/0.3 ML Syringe SUBCUT SCH (09:47)
[2017-03-11] MEDS: Digoxin 125 MCG Tab PO SCH (09:47)
[2017-03-11] MEDS: predniSONE 20 MG Tab PO SCH (09:48)
[2017-03-11] MEDS: Carvedilol 6.25 MG Tab PO SCH ×2 (09:49→20:38)
[2017-03-11] MEDS: Aspirin 81 MG Tab.EC PO SCH (09:49)
[2017-03-11] MEDS: ClonazePAM 0.5 MG Tab PO SCH ×3 (09:52→20:39)
[2017-03-11] MEDS: cefTRIAXone 1 GM Vial IVPUSH SCH (11:27)
[2017-03-11] MEDS: CLOZAPINE 100 MG PO SCH (20:39)
[2017-03-11] MEDS: Benztropine 1 MG Tab PO SCH (20:39)
[2017-03-11] MEDS: Citalopram 20 MG Tab PO SCH (20:39)
[2017-03-12] MEDS: Albuterol/Ipratropium 3.0-0.5 MG/3 ML Neb Soln NEB SCH ×4 (05:57→23:01)
[2017-03-12] MEDS: Nicotine Polacrilex 4 MG Gum CHEW PRN ×6 (05:58→19:22)
[2017-03-12 08:10] LABS: CHLORIDE,CL 105 mmol/L (98-115); SODIUM,NA 143 mmol/L (136-145)
[2017-03-12] MEDS: Enoxaparin 30 MG/0.3 ML Syringe SUBCUT SCH (08:16)
[2017-03-12] MEDS: Nicotine 21 MG/24 Hr Patch TRDERM SCH (08:17)
[2017-03-12] MEDS: Polyethylene Glycol 3350 Powder 17 GM Packet PO SCH (08:17)
[2017-03-12] MEDS: Carvedilol 6.25 MG Tab PO SCH ×2 (08:19→21:06)
[2017-03-12] MEDS: Aspirin 81 MG Tab.EC PO SCH (08:19)
[2017-03-12] MEDS: Digoxin 125 MCG Tab PO SCH (08:20)
[2017-03-12] MEDS: Famotidine 20 MG Tab PO SCH ×2 (08:22→21:06)
[2017-03-12] MEDS: Cetirizine 10 MG Tab PO SCH (08:22)
[2017-03-12] MEDS: ClonazePAM 0.5 MG Tab PO SCH ×3 (08:27→21:06)
[2017-03-12] MEDS: cefTRIAXone 1 GM Vial IVPUSH SCH (11:19)
[2017-03-12] MEDS: CLOZAPINE 100 MG PO SCH (21:06)
[2017-03-12] MEDS: Citalopram 20 MG Tab PO SCH (21:06)
[2017-03-12] MEDS: Benztropine 1 MG Tab PO SCH (21:06)
[2017-03-13] MEDS: Albuterol/Ipratropium 3.0-0.5 MG/3 ML Neb Soln NEB SCH ×5 (06:04→22:06)
[2017-03-13] MEDS: Nicotine Polacrilex 4 MG Gum CHEW PRN ×6 (06:05→20:03)
[2017-03-13] MEDS: Enoxaparin 30 MG/0.3 ML Syringe SUBCUT SCH (08:19)
[2017-03-13] MEDS: Nicotine 21 MG/24 Hr Patch TRDERM SCH (08:19)
[2017-03-13] MEDS: Polyethylene Glycol 3350 Powder 17 GM Packet PO SCH (08:22)
[2017-03-13] MEDS: Digoxin 125 MCG Tab PO SCH (08:25)
[2017-03-13] MEDS: Carvedilol 6.25 MG Tab PO SCH ×2 (08:26→20:50)
[2017-03-13] MEDS: Aspirin 81 MG Tab.EC PO SCH (08:27)
[2017-03-13] MEDS: Famotidine 20 MG Tab PO SCH ×2 (08:27→20:50)
[2017-03-13] MEDS: Cetirizine 10 MG Tab PO SCH (08:27)
[2017-03-13] MEDS: ClonazePAM 0.5 MG Tab PO SCH ×3 (08:31→20:49)
[2017-03-13] MEDS: cefTRIAXone 1 GM Vial IVPUSH SCH (11:42)
[2017-03-13] MEDS: CLOZAPINE 100 MG PO SCH (20:49)
[2017-03-13] MEDS: Citalopram 20 MG Tab PO SCH (20:49)
[2017-03-13] MEDS: Benztropine 1 MG Tab PO SCH (20:50)
[2017-03-14] MEDS: Albuterol/Ipratropium 3.0-0.5 MG/3 ML Neb Soln NEB SCH ×2 (06:00→11:07)
[2017-03-14] MEDS: Nicotine Polacrilex 4 MG Gum CHEW PRN ×4 (06:15→12:40)
[2017-03-14 08:08] LABS: CHLORIDE,CL 105 mmol/L (98-115); SODIUM,NA 140 mmol/L (136-145)
[2017-03-14] MEDS: Carvedilol 6.25 MG Tab PO SCH (08:29)
[2017-03-14] MEDS: Nicotine 21 MG/24 Hr Patch TRDERM SCH (08:30)
[2017-03-14] MEDS: Aspirin 81 MG Tab.EC PO SCH (08:30)
[2017-03-14] MEDS: Digoxin 125 MCG Tab PO SCH (08:30)
[2017-03-14] MEDS: Polyethylene Glycol 3350 Powder 17 GM Packet PO SCH (08:31)
[2017-03-14] MEDS: Cetirizine 10 MG Tab PO SCH (08:31)
[2017-03-14] MEDS: Famotidine 20 MG Tab PO SCH (08:31)
[2017-03-14] MEDS: Enoxaparin 30 MG/0.3 ML Syringe SUBCUT SCH (08:31)
[2017-03-14 08:34] VITALS: BP 118/77
[2017-03-14] MEDS: ClonazePAM 0.5 MG Tab PO SCH ×2 (08:39→12:20)
[2017-03-14] MEDS: cefTRIAXone 1 GM Vial IVPUSH SCH (09:54)
--- NOTE | 2017-03-14 11:02 | PCM.DCSUM1 ---
Discharge Summary - Hospital Course Free Text/Narrative:: Ghulam is being discharged from a swingbed stay from 03/09 - 03/14/17 after being inpatient 03/06 - 03/09/17 for RLL pneumonia. He was initially on levofloxacin 500 mg IV daily. Sputum cultures on 03/10/17 showed Strep pneumo and E. Coli, the latter of which was not sensitive to levofloxacin. He was changed on 03/10/17 to ceftriaxone 1 gram PO daily and has continued to do well. WBC down from high of 18,000 to 15,000. He has been afebrile. He did receive steroids for several days, initially 80 mg of solumedrol IV q 8 hours x 3 days followed by prednisone 40 mg PO daily x an additional 3 days. He did well. He was requiring oxygen during the day (he normally does use oxygen at night) but he has been off O2 during the day for 24 hours with sats of 92% on room air. He was on enoxaparin for DVT prophylaxis. He was already on Pepcid as an outpatient and this was continued for stress ulcer prophylaxis. All of his home meds were continued. He will be discharged on Bactrim DS 1 tab PO BID x 7 days. He may not return to work until March 21, 2017. He had not had a bowel movement for a few days, he was instructed to take magnesium citrate when he gets home. Follow-up with PCP when you get back to [place] within 1 week. - Discharge Data Discharge Date: 03/14/17 Discharge Disposition: Home, Self-Care 01 Condition: Good - Discharge Diagnosis/Problem(s) (1) Pneumonia of right lower lobe due to Escherichia coli SNOMED Code(s): 686346307 ICD Code: J15.5 - PNEUMONIA DUE TO ESCHERICHIA COLI Status: Acute Current Visit: Yes (2) Pneumonia of right lower lobe due to group B Streptococcus SNOMED Code(s): 585514446 ICD Code: J15.3 - PNEUMONIA DUE TO STREPTOCOCCUS, GROUP B Status: Acute Current Visit: Yes (3) COPD (chronic obstructive pulmonary disease) SNOMED Code(s): 21468147 ICD Code: J44.9 - CHRONIC OBSTRUCTIVE PULMONARY DISEASE, UNSPECIFIED Status : Acute Current Visit: No (4) Constipation SNOMED Code(s): 76586717 ICD Code: K59.00 - CONSTIPATION, UNSPECIFIED Status: Acute Current Visit : No (5) Schizoaffective disorder SNOMED Code(s): 37201966 ICD Code: F25.9 - SCHIZOAFFECTIVE DISORDER, UNSPECIFIED Status: Acute Current Visit: No (6) Hypoxemia SNOMED Code(s): 470014969 ICD Code: R09.02 - HYPOXEMIA Status: Resolved Current Visit: No - Patient Summary/Data Consults: Consultations 03/09/17 09:01 PT Evaluation and Treatment [CONS] Routine - Patient Instructions Diet: Regular Diet as Tolerated Activity: As Tolerated - Discharge Plan Prescriptions/Med Rec: Sulfamethoxazole/Trimethoprim [Bactrim Ds Tablet] 1 each PO BID #14 tablet Home Medications: Home Meds Benztropine [Cogentin] 1 mg PO BEDTIME 10/20/13 [History] Citalopram [Citalopram HBr] 20 mg PO BEDTIME 10/20/13 [History] cloZAPine 600 mg PO BEDTIME 10/20/13 [History] ClonazePAM [KlonoPIN] 0.5 mg PO 0800 10/27/15 [History] ClonazePAM [KlonoPIN] 1.5 mg PO BEDTIME 10/27/15 [History] Albuterol Sulfate [Proair Hfa] 2 puff INH Q4H PRN 10/30/15 [History] ClonazePAM [KlonoPIN] 0.5 mg PO 1200 12/28/15 [History] Fluticasone/Salmeterol [Advair Hfa 230-21 Mcg Inhaler] 2 puff INH BID 12/28/15 [ History] Aspirin [Halfprin] 81 mg PO BRK 06/27/16 [History] Carvedilol 6.25 mg PO BID@0800,2000 06/27/16 [History] Digoxin 125 mcg PO DAILY 06/27/16 [History] Tiotropium [Spiriva Handihaler] 18 mcg INH DAILY 07/02/16 [History] Cetirizine [ZyrTEC] 10 mg PO DAILY 03/06/17 [History] Famotidine [Pepcid] 20 mg PO BID 03/06/17 [History] Sennosides [Senokot] 8.6 mg PO DAILY PRN 03/06/17 [History] Sulfamethoxazole/Trimethoprim [Bactrim Ds Tablet] 1 each PO BID #14 tablet 03/14 [Rx] - Discharge Summary/Plan Comment DC Time >30 min.: No - General Info Date of Service: 03/14/17 Admission Dx/Problem (Free Text: Right lower lobe pneumonia due to Strep pneumo and E. Coli. - Review of Systems Systems Review Comment: 10 point ROS obtained, all pertinent positives listed in HPI, all other systems are negative. - Patient Data Vitals - Most Recent: Last Vital Signs Temp 98.4 F 03/14/17 06:12 Pulse 82 03/14/17 08:30 Resp 18 03/14/17 06:12 BP 118/77 03/14/17 08:29 Pulse Ox 92 L 03/14/17 06:12 Weight - Most Recent: 202 lb I&O - Last 24 hours: Intake & Output 03/13/17 03/14/17 03/14/17 22:59 06:59 14:59 Intake Total 300 1730 Output Total 1000 500 Balance -700 1230 Lab Results - Last 24 hrs: Laboratory Results - last 24 hr 03/14/17 03/14/17 Range/Units 07:40 07:40 WBC 15.8 H (5.0-10.0) 10^3/uL RBC 4.99 (4.50-6.00) 10^6/uL Hgb 14.1 (13.0-17.0) g/dL Hct 43.7 (40.0-52.0) % MCV 87.5 (82.0-92.0) fL MCH 28.3 (27.0-31.0) pg MCHC 32.4 (32.0-36.0) g/dL RDW 15.6 H (11.5-14.5) % Plt Count 409 H (150-300) 10^3/uL MPV 7.7 (7.4-10.4) fL Add Manual Diff Yes Neutrophils % (Manual) 64 (50-70) % Lymphocytes % (Manual) 21 (20-40) % Monocytes % (Manual) 10 H (2-8) % Eosinophils % (Manual) 5 H (1-3) % Sodium 140 (136-145) mmol/L Potassium 4.0 (3.3-5.3) mmol/L Chloride 105 (98-115) mmol/L Carbon Dioxide 30.0 (21.0-32.0) mmol/L BUN 16 (6-25) mg/dL Creatinine 0.71 (0.51-1.17) mg/dL Est Cr Clr Drug Dosing 120.79 mL/min Estimated GFR (MDRD) > 60 mL/min Glucose 94 (70-110) mg/dL Calcium 8.4 L (8.7-10.3) mg/dL Med Orders - Current: Current Medications Albuterol/Ipratropium (Duoneb 3.0-0.5 Mg/3 Ml) 3 ml NEB Q4H PRN PRN Reason: Shortness Of Breath/wheezing Last Admin: 03/13/17 08:21 Dose: 3 ml Albuterol/Ipratropium (Duoneb 3.0-0.5 Mg/3 Ml) 3 ml NEB Q6HRRT [facility] Last Admin: 03/14/17 06:00 Dose: 3 ml Aspirin (Halfprin) 81 mg PO BRK [facility] Last Admin: 03/14/17 08:30 Dose: 81 mg Benztropine Mesylate (Cogentin) 1 mg PO BEDTIME [facility] Last Admin: 03/13/17 20:50 Dose: 1 mg Carvedilol (Coreg) 6.25 mg PO BID@0800,2000 [facility] Last Admin: 03/14/17 08:29 Dose: 6.25 mg Ceftriaxone Sodium (Rocephin) 1 gm IVPUSH Q24H [facility] Last Admin: 03/14/17 09:54 Dose: 1 gm Cetirizine HCl (Zyrtec) 10 mg PO DAILY [facility] Last Admin: 03/14/17 08:31 Dose: 10 mg Citalopram Hydrobromide (Celexa) 20 mg PO BEDTIME [facility] Last Admin: 03/13/17 20:49 Dose: 20 mg Clonazepam (Klonopin) 1.5 mg PO BEDTIME [facility] Last Admin: 03/13/17 20:49 Dose: 1.5 mg Clonazepam (Klonopin) 0.5 mg PO BID@0800,1200 [facility] Last Admin: 03/14/17 08:39 Dose: 0.5 mg Digoxin (Lanoxin) 125 mcg PO DAILY [facility] Last Admin: 03/14/17 08:30 Dose: 125 mcg Enoxaparin Sodium (Lovenox) 30 mg SUBCUT DAILY [facility] Last Admin: 03/14/17 08:31 Dose: 30 mg Famotidine (Pepcid) 20 mg PO BID [facility] Last Admin: 03/14/17 08:31 Dose: 20 mg Nicotine (Habitrol) 21 mg TRDERM DAILY [facility] Last Admin: 03/14/17 08:30 Dose: 21 mg Nicotine Polacrilex (Nicorelief) 4 mg CHEW Q2H PRN PRN Reason: Other Last Admin: 03/14/17 10:34 Dose: 4 mg Ptom Clozapine (100mg) 6 each PO BEDTIME [facility] Last Admin: 03/13/17 20:49 Dose: 6 each Polyethylene Glycol (Miralax) 17 gm PO DAILY [facility] Last Admin: 03/14/17 08:31 Dose: 17 gm Senna/Docusate Sodium (Senna Plus) 1 tab PO DAILY PRN PRN Reason: Constipation Last Admin: 03/13/17 08:22 Dose: 1 tab Sodium Chloride (Syrex Flush) 5 ml FLUSH Q8HR PRN PRN Reason: Keep Vein Open Last Admin: 03/10/17 11:41 Dose: 5 ml Discontinued Medications Levofloxacin/Dextrose 500 mg/ (Premix) 100 mls @ 100 mls/hr IV Q24H [facility] Last Admin: 03/09/17 20:12 Dose: 100 mls/hr Prednisone (Prednisone) 40 mg PO WITHBREAKFAST [facility] Stop: 03/11/17 08:01 Last Admin: 03/11/17 09:48 Dose: 40 mg - Exam General: Reports: Alert, Oriented, Cooperative, No Acute Distress Lungs: Reports: Decreased Breath Sounds, Crackles (Right lower lung orta.) Cardiovascular: Reports: Regular Rate, Regular Rhythm, No Murmurs Extremities: No Pedal Edema *Q Meaningful Use (DIS) - VTE *Q VTE Criteria *Q: - Stroke *Q Stroke Criteria *Q: - AMI *Q AMI Criteria *Q:
== END 2017-03-14 14:52 | disposition home or self-care (01) | DRG 195 ==
LOC: KA.MS 09:00 → UNDODISIN 03-14 14:42
PROVIDERS: ADMIT Internal Medicine; ATTEND Internal Medicine
DX: J13 Pneumonia due to Streptococcus pneumoniae (principal); J15.3 Pneumonia due to streptococcus, group B; R09.02 Hypoxemia; J44.9 Chronic obstructive pulmonary disease, unspecified; F25.9 Schizoaffective disorder, unspecified; I10 Essential (primary) hypertension; K59.00 Constipation, unspecified; Z79.82 Long term (current) use of aspirin; Z79.899 Other long term (current) drug therapy
CPT/HCPCS: 36415; 71020; 80048; 85025; 94640; A9270-GY; J0696; J1650; J1956

== ENCOUNTER 2017-10-02 10:15 | Observation (INO) | payer MEDICARE, MEDICAID ==
[2017-10-02] MEDS ORDERED: Albuterol/Ipratropium 3.0-0.5 MG/3 ML Neb Soln NEB ONE (10:32)
[2017-10-02] MEDS ORDERED: methylPREDNISolone Sodium Succinate 125 MG/2 ML SDV IVPUSH ONE (10:32)
--- NOTE | 2017-10-02 10:32 | EDM.PDOC ---
ED HPI GENERAL MEDICAL PROBLEM - General Chief Complaint: Respiratory Problem Stated Complaint: SHORTNESS OF BREATH Time Seen by Provider: 10/02/17 10:26 Source of Information: Reports: Patient History Limitations: Reports: No Limitations - History of Present Illness INITIAL COMMENTS - FREE TEXT/NARRATIVE: 57 YO WM with history of COPD and toabacco use/abuse presents to ER complaining of increased shortness of breath x 3 days. Pt reports he was recently on Levaquin as an outpatient for COPD exacerbation. Pt denies fever/chill, denies nausea/vomting, denies chest pain. Pt uses home oxygen at night time and states starting 4 days ago he started using his oxygen during the daytime as well. Onset Date: 09/29/17 Location: Reports: Generalized Severity: Moderate Improves with: Reports: Rest Worsens with: Reports: Movement Associated Symptoms: Reports: cough w sputum, Malaise, Shortness of Breath. Denies: Chest Pain, Diaphoresis, Fever/Chills, Nausea/Vomiting, Rash Treatments [employer]: Reports: Breathing Treatments - Related Data Allergies Allergy/AdvReac Type Severity Reaction Status Date / Time No Known Drug Allergies Allergy Other Verified 10/02/17 11:04 Home Meds: Home Meds Benztropine [Cogentin] 1 mg PO BEDTIME 10/20/13 [History] Citalopram [Citalopram HBr] 20 mg PO BEDTIME 10/20/13 [History] cloZAPine 600 mg PO BEDTIME 10/20/13 [History] ClonazePAM [KlonoPIN] 0.5 mg PO 0800 10/27/15 [History] ClonazePAM [KlonoPIN] 1.5 mg PO BEDTIME 10/27/15 [History] Albuterol Sulfate [Proair Hfa] 2 puff INH Q4H PRN 10/30/15 [History] ClonazePAM [KlonoPIN] 0.5 mg PO 1200 12/28/15 [History] Fluticasone/Salmeterol [Advair Hfa 230-21 Mcg Inhaler] 2 puff INH BID 12/28/15 [ History] Aspirin [Halfprin] 81 mg PO BRK 06/27/16 [History] Carvedilol 6.25 mg PO BID@0800,2000 06/27/16 [History] Digoxin 125 mcg PO DAILY 06/27/16 [History] Tiotropium [Spiriva Handihaler] 18 mcg INH DAILY 07/02/16 [History] Cetirizine [ZyrTEC] 10 mg PO DAILY 03/06/17 [History] Famotidine [Pepcid] 20 mg PO BID 03/06/17 [History] Sennosides [Senokot] 8.6 mg PO DAILY PRN 03/06/17 [History] Sulfamethoxazole/Trimethoprim [Bactrim Ds Tablet] 1 each PO BID #14 tablet 03/14 [Rx] Past Medical History HEENT History: Reports: Impaired Vision Cardiovascular History: Reports: Hypertension Respiratory History: Reports: Bronchitis, Recurrent, COPD, Pneumonia, Recurrent , Other (See Below) Other Respiratory History: emphysema, mass on LLL of lung found on PET scan on . Also had cyst removed from right lung and biopsied at this time, found to be benign. Gastrointestinal History: Reports: Chronic Constipation, GERD Psychiatric History: Reports: Anxiety, Bipolar, Other (See Below) Other Psychiatric History: schizoaffective disorder vs bipolar/high-anxiety disorder, currently treated for these conditions - Infectious Disease History Infectious Disease History: Reports: Chicken Pox Other Infectious Disease History: Was taking infectious disease medication, one being rifampin, for the entire year of 2014 as prescribed by his infectious disease doctor in [place] to eliminate "spots" on his lungs over a period of time. - Past Surgical History Head Surgeries/Procedures: Reports: None Other HEENT Surgeries/Procedures: wears glasses Respiratory Surgical History: Reports: Lung Biopsies GI Surgical History: Reports: None Social & Family History - Family History Family Medical History: Noncontributory HEENT: Reports: None Cardiac: Reports: None, Aneurysm Respiratory: Reports: None GI: Reports: None : Reports: None OBGYN: Reports: None Musculoskeletal: Reports: None Neurological: Reports: None Psychiatric: Reports: None Endocrine/Metabolic: Reports: Hypothyroidism Hematologic: Reports: None Immunologic: Reports: None Dermatologic: Reports: None Oncologic: Reports: None - Caffeine Use Caffeine Use: Reports: Coffee, Soda Caffeine Use Comment: Patient states that he drinks two pots of coffee every day at home. - Living Situation & Occupation Living situation: Reports: Single, Alone Occupation: Employed ED ROS GENERAL - Review of Systems Review Of Systems: See Below Constitutional: Reports: No Symptoms HEENT: Reports: No Symptoms Respiratory: Reports: Shortness of Breath, Wheezing, Cough, Sputum Cardiovascular: Reports: No Symptoms Endocrine: Reports: No Symptoms GI/Abdominal: Reports: No Symptoms : Reports: No Symptoms Musculoskeletal: Reports: No Symptoms Skin: Reports: No Symptoms Neurological: Reports: No Symptoms Psychiatric: Reports: No Symptoms Hematologic/Lymphatic: Reports: No Symptoms Immunologic: Reports: No Symptoms ED EXAM, GENERAL - Physical Exam Exam: See Below Exam Limited By: No Limitations General Appearance: Alert, WD/WN, No Apparent Distress Nose: Normal Inspection, Normal Mucosa, No Blood Throat/Mouth: Normal Inspection, Normal Lips, Normal Teeth, Normal Gums, Normal Oropharynx, Normal Voice, No Airway Compromise Head: Atraumatic, Normocephalic Neck: Normal Inspection, Supple, Non-Tender, Full Range of Motion Respiratory/Chest: No Respiratory Distress, No Accessory Muscle Use, Chest Non- Tender, Rhonchi, Wheezing. No: Lungs Clear, Normal Breath Sounds Cardiovascular: Normal Peripheral Pulses, Regular Rate, Rhythm, No Edema, No Gallop, No JVD, No Murmur, No Rub GI/Abdominal: Normal Bowel Sounds, Soft, Non-Tender, No Organomegaly, No Distention, No Abnormal Bruit, No Mass Back Exam: Normal Inspection Extremities: Normal Inspection, Normal Range of Motion, Non-Tender, Normal Capillary Refill, No Pedal Edema Neurological: Alert, Oriented, CN II-XII Intact, Normal Cognition, Normal Gait, Normal Reflexes, No Motor/Sensory Deficits Psychiatric: Normal Affect, Normal Mood Skin Exam: Warm, Dry, Intact, Normal Color, No Rash Lymphatic: No Adenopathy Course - Orders/Labs/Meds Orders: Active Orders 24 hr Category Date Time Status Cardiac Monitoring [RC] . DIRECTED Care 10/02/17 10:32 Active Oxygen Therapy Adult [Oxygen Therapy, ED] [RC] Care 10/02/17 10:32 Active ASDIRECTED RT Aerosol Therapy [RC] ASDIRECTED Care 10/02/17 10:33 Active Labs: Laboratory Tests 10/02/17 10/02/17 Range/Units 10:55 10:55 WBC 9.9 (5.0-10.0) 10^3/uL RBC 4.37 L (4.50-6.00) 10^6/uL Hgb 12.8 L (13.0-17.0) g/dL Hct 39.2 L (40.0-52.0) % MCV 89.7 (82.0-92.0) fL MCH 29.4 (27.0-31.0) pg MCHC 32.7 (32.0-36.0) g/dL RDW 15.7 H (11.5-14.5) % Plt Count 262 D (150-300) 10^3/uL MPV 8.1 (7.4-10.4) fL Neut % (Auto) 82.6 H (50.0-70.0) % Lymph % (Auto) 10.0 L (20.0-40.0) % [place] % (Auto) 5.4 (2.0-8.0) % Eos % (Auto) 1.7 (1.0-3.0) % Baso % (Auto) 0.3 (0.0-1.0) % Neut # (Auto) 8.2 H (2.5-7.0) 10^3/uL Lymph # (Auto) 1.0 (1.0-4.0) 10^3/uL [place] # (Auto) 0.5 (0.1-0.8) 10^3/uL Eos # (Auto) 0.2 (0.1-0.3) 10^3/uL Baso # (Auto) 0.0 (0.0-0.1) 10^3/uL Sodium 140 (136-145) mmol/L Potassium 3.8 (3.3-5.3) mmol/L Chloride 106 (98-115) mmol/L Carbon Dioxide 28.4 (21.0-32.0) mmol/L BUN 12 (6-25) mg/dL Creatinine 0.64 (0.51-1.17) mg/dL Est Cr Clr Drug Dosing TNP Estimated GFR (MDRD) > 60 mL/min Glucose 111 H (70-110) mg/dL Calcium 8.6 L (8.7-10.3) mg/dL Total Bilirubin 0.2 (0.2-1.0) mg/dL AST 31 (15-37) U/L ALT 60 (12-78) U/L Alkaline Phosphatase 71 (46-116) IU/L Total Protein 6.3 L (6.4-8.2) g/dL Albumin 3.05 (3.00-4.80) g/dL Meds: Medications Discontinued Medications Generic Name Dose Route Start Last Admin Trade Name Freq PRN Reason Stop Dose Admin Albuterol/Ipratropium 3 ml 10/02/17 10:32 10/02/17 11:06 Duoneb 3.0-0.5 Mg/3 Ml NEB 10/02/17 10:33 3 ml ONETIME ONE Administration Methylprednisolone Sodium Succinate 125 mg 10/02/17 10:32 10/02/17 11:07 Solu-Medrol IVPUSH 10/02/17 10:33 125 mg ONETIME ONE Administration - Radiology Interpretation Free Text/Narrative:: CXR- NAD Departure - Departure Time of Disposition: 11:29 Disposition: Refer to Observation Condition: Fair Clinical Impression: COPD, frequent exacerbations - Discharge Information Referrals: PCP,Not In Area [Primary Care Provider] - Forms: ED Department Discharge - My Orders Last 24 Hours: My Active Orders 10/02/17 10:32 Cardiac Monitoring [RC] . DIRECTED Oxygen Therapy Adult [Oxygen Therapy, ED] [RC] ASDIRECTED 10/02/17 10:33 RT Aerosol Therapy [RC] ASDIRECTED - Assessment/Plan Last 24 Hours: My Active Orders 10/02/17 10:32 Cardiac Monitoring [RC] . DIRECTED Oxygen Therapy Adult [Oxygen Therapy, ED] [RC] ASDIRECTED 10/02/17 10:33 RT Aerosol Therapy [RC] ASDIRECTED Assessment:: 1. COPD exacerbation Plan: 1. Admit 23 hour Obs- Dr Radhames Wallace 2. supportive care 3. oxygen 4. duoneb Q4 and PRN 5. solumedrol 80mg Q8
[2017-10-02 11:23] LABS: CHLORIDE,CL 106 mmol/L (98-115); SODIUM,NA 140 mmol/L (136-145)
[2017-10-02] MEDS ORDERED: Nicotine 14 MG/24 Hr Patch TRDERM PRN (12:15)
--- NOTE | 2017-10-02 12:41 | PCM.HP ---
H&P History of Present Illness - General Date of Service: 10/02/17 Admit Problem/Dx: COPD exacerbation Source of Information: Patient, Family, Old Records, Provider (Jordan Torres PA-C (ED provider)) History Limitations: Reports: No Limitations - History of Present Illness Initial Comments - Free Text/Narative: Mr. Philippe lives in a care home in [place], [place], and visits his mother on the weekends in [place], [place]. While visiting this weekend, he has experienced worsening shortness of breath and cough productive of white sputum in the past couple days. In the past month, he has been treated for a COPD exacerbation and possible pneumonia, including antibiotic therapy with levofloxacin. He had been at his baseline for the past at least 2 weeks. Despite use of home albuterol inhaler and nebulizer and home oxygen (which he typically only uses 2lpm at night), he continued to feel short of breath and was brought to the [facility] ED for further evaluation. In the ED, he was noted to be hypoxic with a 2lpm oxygen requirement and have some increased work of breathing, which improved with DuoNeb treatment. Work-up was notable for WBC 9.9, unremarkable metabolic panel, and CXR without abnormality. Due to his hypoxia and failure of home management of symptoms, observation admission was recommended. - Related Data Allergies/Adverse Reactions: Allergies Allergy/AdvReac Type Severity Reaction Status Date / Time No Known Drug Allergies Allergy Other Verified 10/02/17 11:04 Home Medications: Home Meds Benztropine [Cogentin] 1 mg PO BEDTIME 10/20/13 [History] Citalopram [Citalopram HBr] 20 mg PO BEDTIME 10/20/13 [History] cloZAPine 600 mg PO BEDTIME 10/20/13 [History] ClonazePAM [KlonoPIN] 0.5 mg PO 0800 10/27/15 [History] ClonazePAM [KlonoPIN] 1.5 mg PO BEDTIME 10/27/15 [History] Albuterol Sulfate [Proair Hfa] 2 puff INH Q4H PRN 10/30/15 [History] ClonazePAM [KlonoPIN] 0.5 mg PO 1200 12/28/15 [History] Fluticasone/Salmeterol [Advair Hfa 230-21 Mcg Inhaler] 2 puff INH BID 12/28/15 [ History] Aspirin [Halfprin] 81 mg PO BRK 06/27/16 [History] Carvedilol 6.25 mg PO BID@0800,2000 06/27/16 [History] Digoxin 125 mcg PO DAILY 06/27/16 [History] Cetirizine [ZyrTEC] 10 mg PO DAILY 03/06/17 [History] Famotidine [Pepcid] 20 mg PO BID 03/06/17 [History] Albuterol Sulfate 0.63 mg IH Q6H PRN 10/02/17 [History] Umeclidinium [place] [Incruse Ellipta*] 1 puff INH DAILY 10/02/17 [History] Past Medical History HEENT History: Reports: Hard of Hearing, Impaired Vision Cardiovascular History: Reports: Hypertension Respiratory History: Reports: Bronchitis, Recurrent, COPD, Pneumonia, Recurrent , Other (See Below) Other Respiratory History: emphysema, mass on LLL of lung found on PET scan on . Also had cyst removed from right lung and biopsied at this time, found to be benign. Gastrointestinal History: Reports: Chronic Constipation, GERD Psychiatric History: Reports: Anxiety, Bipolar, Other (See Below) Other Psychiatric History: schizoaffective disorder vs bipolar/high-anxiety disorder, currently treated for these conditions - Infectious Disease History Infectious Disease History: Reports: Chicken Pox Other Infectious Disease History: Was taking infectious disease medication, one being rifampin, for the entire year of 2014 as prescribed by his infectious disease doctor in [place] to eliminate "spots" on his lungs over a period of time. - Past Surgical History Head Surgeries/Procedures: Reports: None HEENT Surgical History: Reports: Other (See Below) Other HEENT Surgeries/Procedures: Nasal surgery in July to open up nasal passage Respiratory Surgical History: Reports: Lung Biopsies GI Surgical History: Reports: None Social & Family History - Family History HEENT: Reports: None Cardiac: Reports: Aneurysm Respiratory: Reports: None GI: Reports: None : Reports: None OBGYN: Reports: None Musculoskeletal: Reports: None Neurological: Reports: None Psychiatric: Reports: None Endocrine/Metabolic: Reports: Hypothyroidism Hematologic: Reports: None Immunologic: Reports: None Dermatologic: Reports: None Oncologic: Reports: None - Tobacco Use Smoking Status *Q: Former Smoker Used Tobacco, but Quit: Yes Month/Year Tobacco Last Used: 2016 Second Hand Smoke Exposure: No - Caffeine Use Caffeine Use: Reports: Coffee, Soda Caffeine Use Comment: Patient states that he drinks two pots of coffee every day at home. - Recreational Drug Use Recreational Drug Use: No - Living Situation & Occupation Living situation: Reports: Single, Alone Occupation: Employed H&P Review of Systems - Review of Systems: Review Of Systems: See Below General: Reports: Weakness, Fatigue. Denies: Fever, Chills, Diaphoresis HEENT: Denies: Headaches, Sinus Congestion, Sore Throat Pulmonary: Reports: Shortness of Breath, Wheezing, Cough, Sputum. Denies: Pleuritic Chest Pain Cardiovascular: Denies: Chest Pain, Palpitations, Edema, Syncope Gastrointestinal: Reports: Decreased Appetite. Denies: Abdominal Pain, Constipation, Diarrhea, Hematochezia Genitourinary: Denies: Dysuria, Frequency, Hematuria Musculoskeletal: Denies: Neck Pain, Back Pain, Joint Pain Skin: Denies: Bruising, Rash, Wound Psychiatric: Denies: Mood Lability (at baseline) Neurological: Denies: Headache, Numbness, Tingling Hematologic/Lymphatic: Denies: Easy Bleeding, Easy Bruising, Swollen Glands Immunologic: Reports: No Symptoms Exam - Exam Exam: See Below - Vital Signs Vital Signs: Last Vital Signs Temp 36.2 C 10/02/17 11:59 Pulse 86 10/02/17 11:59 Resp 26 H 10/02/17 11:59 BP 137/85 10/02/17 11:59 Pulse Ox 92 L 10/02/17 12:38 Weight: 88.451 kg - Exam Physical Exam Comments:: GENERAL: Well-appearing adult male sitting in bedside chair in no acute distress. Mother at bedside. HEENT: Normocephalic, atraumatic. Conjunctiva clear. Nares patent without discharge. Mucous membranes moist, posterior pharynx unremarkable. NECK: Supple, no masses. CV: Regular rate and rhythm, no murmurs, rubs, or gallops. 2+ radial pulses. PULMONARY: Normal effort, scattered expiratory wheezes, no rales or rhonchi. ABDOMEN: Positive bowel sounds, soft, nontender, nondistended. EXTREMITIES: No edema, cyanosis, or clubbing. MUSCULOSKELETAL: Moves all extremities well. NEUROLOGICAL: No obvious deficits. DERMATOLOGIC: No rashes or suspicious lesions in exposed areas. PSYCHIATRIC: Alert, interactive, appropriate affect. - Patient Data Lab Results Last 24 hrs: Laboratory Results - last 24 hr 10/02/17 10/02/17 Range/Units 10:55 10:55 WBC 9.9 (5.0-10.0) 10^3/uL RBC 4.37 L (4.50-6.00) 10^6/uL Hgb 12.8 L (13.0-17.0) g/dL Hct 39.2 L (40.0-52.0) % MCV 89.7 (82.0-92.0) fL MCH 29.4 (27.0-31.0) pg MCHC 32.7 (32.0-36.0) g/dL RDW 15.7 H (11.5-14.5) % Plt Count 262 D (150-300) 10^3/uL MPV 8.1 (7.4-10.4) fL Neut % (Auto) 82.6 H (50.0-70.0) % Lymph % (Auto) 10.0 L (20.0-40.0) % [place] % (Auto) 5.4 (2.0-8.0) % Eos % (Auto) 1.7 (1.0-3.0) % Baso % (Auto) 0.3 (0.0-1.0) % Neut # (Auto) 8.2 H (2.5-7.0) 10^3/uL Lymph # (Auto) 1.0 (1.0-4.0) 10^3/uL [place] # (Auto) 0.5 (0.1-0.8) 10^3/uL Eos # (Auto) 0.2 (0.1-0.3) 10^3/uL Baso # (Auto) 0.0 (0.0-0.1) 10^3/uL Sodium 140 (136-145) mmol/L Potassium 3.8 (3.3-5.3) mmol/L Chloride 106 (98-115) mmol/L Carbon Dioxide 28.4 (21.0-32.0) mmol/L BUN 12 (6-25) mg/dL Creatinine 0.64 (0.51-1.17) mg/dL Est Cr Clr Drug Dosing TNP Estimated GFR (MDRD) > 60 mL/min Glucose 111 H (70-110) mg/dL Calcium 8.6 L (8.7-10.3) mg/dL Total Bilirubin 0.2 (0.2-1.0) mg/dL AST 31 (15-37) U/L ALT 60 (12-78) U/L Alkaline Phosphatase 71 (46-116) IU/L Total Protein 6.3 L (6.4-8.2) g/dL Albumin 3.05 (3.00-4.80) g/dL Result Diagrams: 10/02/17 10:55 10/02/17 10:55 Problem List Initiated/Reviewed/Updated: Yes Orders Last 24hrs: Active Orders 24 hr Category Date Time Status Cardiac Monitoring [RC] . DIRECTED Care 10/02/17 10:32 Active Oxygen Therapy Adult [Oxygen Therapy, ED] [RC] Care 10/02/17 10:32 Active ASDIRECTED Pulse Oximetry [RC] PRN Care 10/02/17 12:16 Active RT Aerosol Therapy [RC] ASDIRECTED Care 10/02/17 10:33 Inactive RT Aerosol Therapy [RC] ASDIRECTED Care 10/02/17 12:23 Active Up ad Kandice [RC] ASDIRECTED Care 10/02/17 12:15 Active Vital Signs [RC] Q4H Care 10/02/17 12:15 Active Heart Healthy Diet [DIET] Diet 10/02/17 Lunch Active B-TYPE NATRIURETIC PEPTIDE,BNP [CHEM] Routine Lab 10/02/17 12:28 Ordered BASIC METABOLIC PANEL,BMP [CHEM] AM Lab 10/03/17 05:11 Ordered CBC WITH AUTO DIFF [HEME] AM Lab 10/03/17 05:11 Ordered CRP [C-REACTIVE PROTEIN] [CHEM] Routine Lab 10/02/17 12:28 Ordered TROPONIN I [CHEM] Routine Lab 10/02/17 12:28 Ordered Albuterol/Ipratropium [DuoNeb 3.0-0.5 MG/3 ML] Med 10/02/17 12:23 Ordered 3 ml NEB Q4HRRT PRN Aspirin [Halfprin] Med 10/03/17 08:00 Ordered 81 mg PO BRK Benztropine [Cogentin] Med 10/02/17 21:00 Ordered 1 mg PO BEDTIME Carvedilol [Coreg] Med 10/02/17 20:00 Ordered 6.25 mg PO BID@08,1999 Cetirizine [ZyrTEC] Med 10/03/17 09:00 Ordered 10 mg PO DAILY Citalopram [Celexa] Med 10/02/17 21:00 Ordered 20 mg PO BEDTIME ClonazePAM [KlonoPIN] Med 10/03/17 08:00 Ordered 0.5 mg PO 0800 ClonazePAM [KlonoPIN] Med 10/03/17 12:00 Ordered 0.5 mg PO 1200 ClonazePAM [KlonoPIN] Med 10/02/17 21:00 Ordered 1.5 mg PO BEDTIME Digoxin [Lanoxin] Med 10/03/17 09:00 Ordered 125 mcg PO DAILY Famotidine [Pepcid] Med 10/02/17 21:00 Ordered 20 mg PO BID Fluticasone/Salmeterol [Advair Hfa 230-21 Mcg Inhaler] Med 10/02/17 21:00 Ordered 2 puff INH BID Nicotine [Habitrol] Med 10/02/17 12:15 Ordered 14 mg TRDERM DAILY PRN Umeclidinium [place] [Incruse Ellipta] Med 10/03/17 09:00 Ordered DOSE mcg IH DAILY cloZAPine Med 10/02/17 21:00 Ordered 600 mg PO BEDTIME predniSONE Med 10/03/17 08:00 Ordered 40 mg PO WITHBREAKFAST Resuscitation Status Routine Resus Stat 10/02/17 12:15 Ordered Medication Orders Albuterol/Ipratropium (Duoneb 3.0-0.5 Mg/3 Ml) 3 ml NEB Q4HRRT PRN PRN Reason: Shortness of Breath Aspirin (Halfprin) 81 mg PO BRK GRETA Benztropine Mesylate (Cogentin) 1 mg PO BEDTIME GRETA Carvedilol (Coreg) 6.25 mg PO BID@799,1999 GRETA Cetirizine HCl (Zyrtec) 10 mg PO DAILY GRETA Citalopram Hydrobromide (Celexa) 20 mg PO BEDTIME GRETA Digoxin (Lanoxin) 125 mcg PO DAILY GRETA Famotidine (Pepcid) 20 mg PO BID GRETA Nicotine (Habitrol) 14 mg TRDERM DAILY PRN PRN Reason: Other Non-Formulary Medication (Clonazepam [Klonopin]) 0.5 mg PO 0800 GRETA Non-Formulary Medication (Clonazepam [Klonopin]) 0.5 mg PO 1200 GRETA Non-Formulary Medication (Clonazepam [Klonopin]) 1.5 mg PO BEDTIME GRETA Non-Formulary Medication (Clozapine) 600 mg PO BEDTIME GRETA Non-Formulary Medication (Fluticasone/Salmeterol [Advair Hfa 230-21 Mcg Inhaler] ) 2 puff INH BID GRETA Prednisone (Prednisone) 40 mg PO WITHBREAKFAST GRETA Stop: 10/06/17 08:01 Assessment/Plan Comment:: HPI summary: 57yoM with a history notbale for COPD, idiopathic cardimyopathy, and schizoaffective disorder for which he lives in a care home in [place], [place]. He visits his mother on the weekends in [place], [place], and while visiting this weekend, experienced worsening shortness of breath and cough productive of white sputum in the past couple days. In the past month, he has been treated for a COPD exacerbation and possible pneumonia, including antibiotic therapy with levofloxacin. He had been at his baseline for the past at least 2 weeks. Despite use of home albuterol inhaler and nebulizer and home oxygen (which he typically only uses 2lpm at night), he continued to feel short of breath and was brought to the [facility] ED for further evaluation. ED course: In the ED, he was noted to be hypoxic with a 2lpm oxygen requirement and have some increased work of breathing, which improved with DuoNeb treatment. Work-up was notable for WBC 9.9, unremarkable metabolic panel, and CXR without abnormality. Due to his hypoxia and failure of home management of symptoms, observation admission was recommended. Hospitalization problems: # COPD with acute exacerbation # Acute hypoxic respiratory failure superimposed on chronic nocturnal respiratory failure # Tobacco dependence Overall clinical status reassuring after transfer to floor without evidence of respiratory distress and the patient admitted already feeling much better. Added on BNP (22), troponin (<.04), and CRP (3.4), which in the setting of the rest of the objective information gathered in the ED, clinical situation does not suggest ischemic or volume overload etiology at this time. Since CXR was without evidence of pneumonia and his clinical status is overall reassuring, will hold off on antibiotic initiation at this time. Will proceed with treatment for COPD exacerbation, for which he is already appearing to be doing better. - Prednisone 40mg tomorrow for day 2 of planned 5 day burst - DuoNebs q4h prn - Conitnue Advair and Incruse - Titrate oxygen as able - Nicotine patch and gum prn - CBC and BMP in AM Chronic, stable conditions: # Idiopathic cardiomyopathy/HTN: Continue carvedilol, digoxin, and ASA. # GERD: Continue famotidine. # OA # Schizoaffective disorder/JOSLYN: Continue benztropine, clozapine, citalopram, and clonazepam. # Seasonal allergies: Continue cetirizine. Hospitalization details: # FEN: No IVF. Electrolytes normal. Heart healthy diet. # PPX: Ambulation for DVT ppx; will initiate pharmacologic ppx if not discharged tomorrow. # Code status: FULL. # Emergency contact: Mother, who was at bedside during admission. # Disposition: Admit to observation. Anticipate discharge tomorrow if clinically improved and no concerns arise.
[2017-10-02] MEDS: Albuterol/Ipratropium 3.0-0.5 MG/3 ML Neb Soln NEB PRN (13:55)
[2017-10-02] MEDS: Nicotine Polacrilex 4 MG Gum CHEW PRN ×3 (14:35→18:37)
[2017-10-02] MEDS: SALMETEROL INH SCH (20:17)
[2017-10-02] MEDS: FLUTICASONE INH SCH (20:17)
[2017-10-02] MEDS: Famotidine 20 MG Tab PO SCH (20:18)
[2017-10-02] MEDS: Carvedilol 6.25 MG Tab PO SCH (20:18)
[2017-10-02] MEDS ORDERED: Citalopram 20 MG Tab PO SCH (21:00)
[2017-10-02] MEDS ORDERED: Benztropine 1 MG Tab PO SCH (21:00)
[2017-10-02] MEDS ORDERED: ClonazePAM 0.5 MG Tab PO SCH (21:00)
[2017-10-02] MEDS ORDERED: CLOZAPINE 100 MG PO SCH (21:00)
[2017-10-03] MEDS: Nicotine Polacrilex 4 MG Gum CHEW PRN ×3 (05:07→09:14)
[2017-10-03] MEDS: Albuterol/Ipratropium 3.0-0.5 MG/3 ML Neb Soln NEB PRN (06:51)
[2017-10-03] MEDS ORDERED: ClonazePAM 0.5 MG Tab PO SCH ×2 (08:00→12:00)
[2017-10-03] MEDS ORDERED: predniSONE 20 MG Tab PO SCH (08:00)
[2017-10-03] MEDS ORDERED: Aspirin 81 MG Tab.EC PO SCH (08:00)
[2017-10-03 08:01] LABS: CHLORIDE,CL 104 mmol/L (98-115); SODIUM,NA 142 mmol/L (136-145)
[2017-10-03] MEDS: FLUTICASONE INH SCH (08:15)
[2017-10-03] MEDS: SALMETEROL INH SCH (08:15)
[2017-10-03] MEDS: Famotidine 20 MG Tab PO SCH (08:28)
[2017-10-03] MEDS: Carvedilol 6.25 MG Tab PO SCH (08:29)
[2017-10-03 08:30] VITALS: BP 146/87
[2017-10-03] MEDS ORDERED: UMECLIDINIUM BROMIDE 62.5 MCG IH SCH (09:00)
[2017-10-03] MEDS ORDERED: Cetirizine 10 MG Tab PO SCH (09:00)
--- NOTE | 2017-10-03 10:48 | PCM.DCSUM1 ---
Discharge Summary - Discharge Data Discharge Date: 10/03/17 Discharge Disposition: Home, Self-Care 01 Condition: Good - Patient Instructions Diet: Usual Diet as Tolerated Activity: As Tolerated Notify Provider of: Fever (or increased shortness of breath) - Discharge Plan Prescriptions/Med Rec: predniSONE 40 mg PO WITHBREAKFAST 3 Days #6 tablet Home Medications: Home Meds Benztropine [Cogentin] 1 mg PO BEDTIME 10/20/13 [History] Citalopram [Citalopram HBr] 20 mg PO BEDTIME 10/20/13 [History] cloZAPine 600 mg PO BEDTIME 10/20/13 [History] ClonazePAM [KlonoPIN] 0.5 mg PO 0800 10/27/15 [History] ClonazePAM [KlonoPIN] 1.5 mg PO BEDTIME 10/27/15 [History] Albuterol Sulfate [Proair Hfa] 2 puff INH Q4H PRN 10/30/15 [History] ClonazePAM [KlonoPIN] 0.5 mg PO 1200 12/28/15 [History] Fluticasone/Salmeterol [Advair Hfa 230-21 Mcg Inhaler] 2 puff INH BID 12/28/15 [ History] Aspirin [Halfprin] 81 mg PO BRK 06/27/16 [History] Carvedilol 6.25 mg PO BID@0800,2000 06/27/16 [History] Digoxin 125 mcg PO DAILY 06/27/16 [History] Cetirizine [ZyrTEC] 10 mg PO DAILY 03/06/17 [History] Famotidine [Pepcid] 20 mg PO BID 03/06/17 [History] Albuterol Sulfate 0.63 mg IH Q6H PRN 10/02/17 [History] Umeclidinium [place] [Incruse Ellipta*] 1 puff INH DAILY 10/02/17 [History] predniSONE 40 mg PO WITHBREAKFAST 3 Days #6 tablet 10/03/17 [Rx] Patient Handouts: Chronic Obstructive Pulmonary Disease Exacerbation, Easy-to- Read Referrals: PCP,Not In Area [Primary Care Provider] - - Discharge Summary/Plan Comment DC Time >30 min.: Yes - Patient Data Vitals - Most Recent: Last Vital Signs Temp 37.0 C 10/03/17 06:51 Pulse 86 10/03/17 08:29 Resp 20 10/03/17 06:51 BP 146/87 H 10/03/17 08:29 Pulse Ox 93 L 10/03/17 06:57 Weight - Most Recent: 88.451 kg I&O - Last 24 hours: Intake & Output 10/02/17 10/03/17 10/03/17 22:59 06:59 14:59 Intake Total 1100 950 Output Total 675 Balance 425 950 Lab Results - Last 24 hrs: Laboratory Results - last 24 hr 10/02/17 10/02/17 10/02/17 Range/Units 10:55 10:55 10:55 WBC 9.9 (5.0-10.0) 10^3/uL RBC 4.37 L (4.50-6.00) 10^6/uL Hgb 12.8 L (13.0-17.0) g/dL Hct 39.2 L (40.0-52.0) % MCV 89.7 (82.0-92.0) fL MCH 29.4 (27.0-31.0) pg MCHC 32.7 (32.0-36.0) g/dL RDW 15.7 H (11.5-14.5) % Plt Count 262 D (150-300) 10^3/uL MPV 8.1 (7.4-10.4) fL Neut % (Auto) 82.6 H (50.0-70.0) % Lymph % (Auto) 10.0 L (20.0-40.0) % [place] % (Auto) 5.4 (2.0-8.0) % Eos % (Auto) 1.7 (1.0-3.0) % Baso % (Auto) 0.3 (0.0-1.0) % Neut # (Auto) 8.2 H (2.5-7.0) 10^3/uL Lymph # (Auto) 1.0 (1.0-4.0) 10^3/uL [place] # (Auto) 0.5 (0.1-0.8) 10^3/uL Eos # (Auto) 0.2 (0.1-0.3) 10^3/uL Baso # (Auto) 0.0 (0.0-0.1) 10^3/uL Sodium 140 (136-145) mmol/L Potassium 3.8 (3.3-5.3) mmol/L Chloride 106 (98-115) mmol/L Carbon Dioxide 28.4 (21.0-32.0) mmol/L BUN 12 (6-25) mg/dL Creatinine 0.64 (0.51-1.17) mg/dL Est Cr Clr Drug Dosing TNP Estimated GFR (MDRD) > 60 mL/min Glucose 111 H (70-110) mg/dL Calcium 8.6 L (8.7-10.3) mg/dL Total Bilirubin 0.2 (0.2-1.0) mg/dL AST 31 (15-37) U/L ALT 60 (12-78) U/L Alkaline Phosphatase 71 (46-116) IU/L Troponin I (0.00-0.070) ng/mL C-Reactive Protein 3.4 H (0.0-0.9) mg/dL B-Natriuretic Peptide 22 (0-100) pg/mL Total Protein 6.3 L (6.4-8.2) g/dL Albumin 3.05 (3.00-4.80) g/dL 10/02/17 10/03/17 10/03/17 Range/Units 10:55 07:25 07:25 WBC 12.4 H (5.0-10.0) 10^3/uL RBC 4.82 (4.50-6.00) 10^6/uL Hgb 13.9 (13.0-17.0) g/dL Hct 43.1 (40.0-52.0) % MCV 89.3 (82.0-92.0) fL MCH 28.9 (27.0-31.0) pg MCHC 32.4 (32.0-36.0) g/dL RDW 15.4 H (11.5-14.5) % Plt Count 309 H (150-300) 10^3/uL MPV 7.7 (7.4-10.4) fL Neut % (Auto) 82.9 H (50.0-70.0) % Lymph % (Auto) 9.9 L (20.0-40.0) % [place] % (Auto) 5.8 (2.0-8.0) % Eos % (Auto) 0.4 L (1.0-3.0) % Baso % (Auto) 1.0 (0.0-1.0) % Neut # (Auto) 10.4 H (2.5-7.0) 10^3/uL Lymph # (Auto) 1.2 (1.0-4.0) 10^3/uL [place] # (Auto) 0.7 (0.1-0.8) 10^3/uL Eos # (Auto) 0.0 L (0.1-0.3) 10^3/uL Baso # (Auto) 0.1 (0.0-0.1) 10^3/uL Sodium 142 (136-145) mmol/L Potassium 3.8 (3.3-5.3) mmol/L Chloride 104 (98-115) mmol/L Carbon Dioxide 29.0 (21.0-32.0) mmol/L BUN 13 (6-25) mg/dL Creatinine 0.61 (0.51-1.17) mg/dL Est Cr Clr Drug Dosing 147.36 Estimated GFR (MDRD) > 60 mL/min Glucose 118 H (70-110) mg/dL Calcium 9.2 (8.7-10.3) mg/dL Total Bilirubin (0.2-1.0) mg/dL AST (15-37) U/L ALT (12-78) U/L Alkaline Phosphatase (46-116) IU/L Troponin I < 0.04 (0.00-0.070) ng/mL C-Reactive Protein 2.2 H (0.0-0.9) mg/dL B-Natriuretic Peptide (0-100) pg/mL Total Protein (6.4-8.2) g/dL Albumin (3.00-4.80) g/dL Med Orders - Current: Current Medications Albuterol/Ipratropium (Duoneb 3.0-0.5 Mg/3 Ml) 3 ml NEB Q4HRRT PRN PRN Reason: Shortness of Breath Last Admin: 10/03/17 06:51 Dose: 3 ml Aspirin (Halfprin) 81 mg PO BRK GRETA Last Admin: 10/03/17 08:28 Dose: 81 mg Benztropine Mesylate (Cogentin) 1 mg PO BEDTIME GRETA Last Admin: 10/02/17 20:18 Dose: 1 mg Carvedilol (Coreg) 6.25 mg PO BID@0800,2000 [facility] Last Admin: 10/03/17 08:29 Dose: 6.25 mg Cetirizine HCl (Zyrtec) 10 mg PO DAILY [facility] Last Admin: 10/03/17 08:29 Dose: 10 mg Citalopram Hydrobromide (Celexa) 20 mg PO BEDTIME [facility] Last Admin: 10/02/17 20:19 Dose: 20 mg Clonazepam (Klonopin) 0.5 mg PO DAILY@0800 [facility] Last Admin: 10/03/17 08:29 Dose: 0.5 mg Clonazepam (Klonopin) 0.5 mg PO DAILY@1200 [facility] Clonazepam (Klonopin) 1.5 mg PO BEDTIME [facility] Last Admin: 10/02/17 20:19 Dose: 1.5 mg Digoxin (Lanoxin) 125 mcg PO DAILY@1800 [facility] Famotidine (Pepcid) 20 mg PO BID [facility] Last Admin: 10/03/17 08:28 Dose: 20 mg Nicotine Polacrilex (Nicorelief) 4 mg CHEW Q2H PRN PRN Reason: Other Last Admin: 10/03/17 09:14 Dose: 4 mg PtomClozapine (100mg Tab) 6 each PO BEDTIME [facility] Ptom Advair Hfa (230-21mcg Inhaler) 2 each INH BID [facility] Ptom Incruse Ellipta 62.5 Mcg Inhaler 0 each INH DAILY [facility] Prednisone (Prednisone) 40 mg PO WITHBREAKFAST [facility] Stop: 10/06/17 08:01 Last Admin: 10/03/17 08:29 Dose: 40 mg Discontinued Medications Albuterol/Ipratropium (Duoneb 3.0-0.5 Mg/3 Ml) 3 ml NEB ONETIME ONE Stop: 10/02/17 10:33 Last Admin: 10/02/17 11:06 Dose: 3 ml Methylprednisolone Sodium Succinate (Solu-Medrol) 125 mg IVPUSH ONETIME ONE Stop: 10/02/17 10:33 Last Admin: 10/02/17 11:07 Dose: 125 mg Nicotine (Habitrol) 14 mg TRDERM DAILY PRN PRN Reason: Other Fluticasone/Salmeterol [Advair Hfa] 230-21mcg Inhaler * Own Med * 2 puff INH BID [facility] Last Admin: 10/03/17 08:15 Dose: 2 puff Clozapine 100mg Tab* (* Own Med ) 600 mg PO BEDTIME [facility] Stop: 10/02/17 21:01 Last Admin: 10/02/17 20:18 Dose: 600 mg
[2017-10-03] MEDS ORDERED: Digoxin 125 MCG Tab PO SCH (18:00)
[2017-10-03] MEDS ORDERED: CLOZAPINE 100 MG PO SCH (21:00)
[2017-10-03] MEDS ORDERED: ADVAIR INH SCH (21:00)
[2017-10-04] MEDS ORDERED: INCRUSE ELLIPTA 62.5 MCG INH SCH (09:00)
== END 2017-10-03 12:10 | disposition home or self-care (01) ==
LOC: KA.ED 10:15 → KA.MS 11:30
PROVIDERS: ADMIT Physician Assistant Medical; ATTEND Family Medicine
DX: J44.1 Chronic obstructive pulmonary disease with (acute) exacerbation (principal); J96.21 Acute and chronic respiratory failure with hypoxia; I10 Essential (primary) hypertension; K59.09 Other constipation; K21.9 Gastro-esophageal reflux disease without esophagitis; F31.9 Bipolar disorder, unspecified; F25.9 Schizoaffective disorder, unspecified; F17.200 Nicotine dependence, unspecified, uncomplicated; I42.9 Cardiomyopathy, unspecified; M19.90 Unspecified osteoarthritis, unspecified site; F41.1 Generalized anxiety disorder; J30.2 Other seasonal allergic rhinitis; Z79.899 Other long term (current) drug therapy; Z79.82 Long term (current) use of aspirin
CPT/HCPCS: 36415; 71046; 80048; 80053; 83880; 84484; 85025; 86140; 94640; 99285; A9270; J2930; 99284

== ENCOUNTER 2021-11-07 09:50 | Emergency (ER) | payer MEDICARE, MEDICAID ==
[2021-11-07 10:13] VITALS: BP 118/88; PULSE 73
[2021-11-07] MEDS: Albuterol/Ipratropium 3.0-0.5 MG/3 ML Neb Soln NEB ONE (10:30)
[2021-11-07] MEDS: Albuterol/Ipratropium 3.0-0.5 MG/3 ML Neb Soln ONE (13:01)
== END 2021-11-07 11:04 | disposition home or self-care (01) ==
LOC: KA.ED 09:50
DX: J44.1 Chronic obstructive pulmonary disease with (acute) exacerbation (principal); I10 Essential (primary) hypertension; F17.210 Nicotine dependence, cigarettes, uncomplicated; Z86.16 Personal history of COVID-19; Z79.02 Long term (current) use of antithrombotics/antiplatelets; Z79.899 Other long term (current) drug therapy
CPT/HCPCS: 99284; J7620-GY

== ENCOUNTER 2022-01-16 18:14 | Emergency (ER) | payer MEDICARE, MEDICAID ==
[2022-01-16] MEDS ORDERED: Albuterol/Ipratropium 3.0-0.5 MG/3 ML Neb Soln NEB ONE (18:31)
[2022-01-16 18:41] LABS: ANION GAP 6.3 mmol/L (5-15)
[2022-01-16] MEDS ORDERED: Azithromycin 250 MG Tab PO ONE (19:28)
[2022-01-16 19:30] VITALS: BP 116/81; PULSE 76
== END 2022-01-16 19:44 | disposition home or self-care (01) ==
LOC: KA.ED 18:14
DX: J44.1 Chronic obstructive pulmonary disease with (acute) exacerbation (principal); I10 Essential (primary) hypertension; F41.9 Anxiety disorder, unspecified; F31.9 Bipolar disorder, unspecified; Z79.899 Other long term (current) drug therapy
CPT/HCPCS: 36415; 71046; 80048; 85025; 87070; 87205; 99284; 99285; A9270-GY; J7620-GY